=== PATIENT | male | born 1940 | race Caucasian/White ===

== ENCOUNTER → 2019-08-29 08:52 | Outpatient (BNVA) | payer MEDICARE, OTHER, SELFPAY | PROVIDERS: Family Provider Family Medicine; PCP Family Medicine; Referring Provider Family Medicine; Visit Provider Podiatrist Foot & Ankle Surgery | DX: M79.672 Pain in left foot (principal); M19.072 Primary osteoarthritis, left ankle and foot; M21.42 Flat foot [pes planus] (acquired), left foot | CPT/HCPCS: 73630 ==

== ENCOUNTER 2019-10-31 12:45 | Observation (INO) | payer MEDICARE, OTHER, SELFPAY ==
[2019-10-31] VITALS (8 sets, daily range): BP systolic 116–153; BP diastolic 71–92; PULSE 65–90; RESP 17–24; TEMP 36.4–36.9; O2SAT 93–100; BMI 28.0
--- NOTE | 2019-10-31 12:49 | CT_ITS ---
WS: [id number] CT ABDOMEN PELVIS TECHNIQUE: Contrast-enhanced CT of the abdomen and pelvis with coronal and sagittal reformatted image s. CLINICAL INFORMATION: abd pain COMPARISON: None. DLP: 1032.[address] scans at [facility] use at least one of these dose optimization techniques: automat ed exposure control; mA and/or kV adjustment per patient size (includes targeted exams where dose is matched to clinical indication); or iterative reconstruction. FINDINGS: Liver is normal in appearance. Normal gallbladder. Fluid distended stomach with air-fluid levels. Dil ated fluid-filled loops of proximal small bowel. Distal small bowel is decompressed. Colon is decompr essed. Fatty atrophy of the pancreas. Small left adrenal adenoma. Right Adrenal gland is normal. Normal sple en. Hazy groundglass infiltrates within the lingula and left lower lobe. Additional groundglass infil trates within the right middle lobe. Emphysematous changes in the lung bases. Normal caliber abdominal aorta. Fat-containing umbilical hernia. No herniated bowel. Small left nazia l cyst. Left renal cyst measures 3.1 cm. Notified Curly Ledbetter DO at 10/31/2019 2:[address]/CT abdomen pelvis w con* [id number] IMPRESSION: 1. Dilated fluid-filled stomach with air-fluid level. Fluid in the proximal sm all bowel with mild small bowel dilatation. No focal transition point. Findings can be seen with small bowel ileus or developing partial small bowel obstructi on. 2. Distal small bowel and colon are decompressed. 3. Heterogeneously enhancing enlarged prostate measuring 5.5 cm in maximum dim ension. Correlation PSA. 4. Hazy groundglass infiltrates within the lingula, right middle lobe, and lef t lower lobe can be seen with viral pneumonia including COVID pneumonia 5. Left renal cyst measuring 3.1 cm. 6. Small left adrenal lesion likely adenoma.
--- NOTE | 2019-10-31 12:49 | ECG_ITS ---
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 Measurements Intervals [place] Rate: 57 P: 66 [place]: 151 QRS: 56 QRSD: 98 T: 42 QT: 404 QTc: 395 Interpretive Statements SINUS BRADYCARDIA Compared to ECG 01/16/2019 23:57:55 Sinus rhythm no longer present T-wave abnormality no longer present Electronically Signed On 10-31-2019 17:45:00 CDT by Arcadio Giordano M.D. [id number]
--- NOTE | 2019-10-31 12:51 | W.ED.ABDPA2 ---
HPI - Abdominal Pain General: Chief Complaint: Nausea/Vomiting/Diarrhea Stated Complaint: WEAKNESS, N/V, DIAPHORESIS Time Seen by Provider: 10/31/19 12:48 History of Present Illness: HPI narrative: 79 yo male with syncopal episode at his doctors office, He had been having abdominal pain intermittently for the last several months. This morning he was at his doctor's office he was on the way to get some lab work done and had an episode of syncope. He bradycardia down into the 30s he was given some antiemetics brought here by EMS. Earlier today vomited times once a lot of bilious vomit has not had any diarrhea is not had any GI blood source denies any dysuria urgency or frequency has noticed a lot of increased belching. Denies chest pain or shortness of breath. He states has been kind of focusing on his gallbladder as an outpatient work-up up to this point. Is not noticed any trigger foods that seem to set it off and talking to him it does sound as if he has some reflux. He is taking omeprazole once daily. MD elicited complaint: abdominal pain Pertinent past history: none Onset (ago): week(s) (Approximately 6 weeks per the patient) Pain Consistency: intermittent Location: Periumbilical Severity: moderate Quality: cramping Radiation: none Migration to: no migration Exacerbating factors: eating and vomiting Relieving factors: nothing Associated Symptoms: Reports nausea and vomiting; Denies bloating, chills, coffee ground emesis, constipation, diarrhea, dysuria, fever(s), hematochezia, hematemesis and melena Review of Systems Const: Denies: fever(s), chills, body aches, change in appetite, fatigue or malaise ENMT: Denies: throat pain, ear or mastoid pain, nasal discharge or nasal congestion Card: Denies: chest pain, edema, dyspnea on exertion or orthopnea Resp: Denies: dyspnea, productive cough or non-productive cough GI: Reports: abdominal pain, nausea and vomiting; Denies: hematemesis, coffee ground emesis, diarrhea, constipation, bloating, hematochezia or melena : Denies: flank pain, dysuria, urinary frequency or urinary urgency Skin/Breast: Denies: rash or pruritus PFS ED PFSH: Medical History (Updated 11/02/19 @ 14:11 by Curly Ledbetter DO) GERD (gastroesophageal reflux disease) Hypercholesterolemia Hypertension Surgical History History of medial meniscus repair of right knee Status post Dupuytren's fasciectomy Family History Other Cancer Hyperlipidemia Hypertension Lung disease Stroke Denies family history of Diabetes CAD (coronary artery disease) Clotting disorder Dementia Psychiatric illness Chronic kidney disease (CKD) Suicide Anesthesia complication Bleeding disorder Family history of premature coronary artery disease Social History Smoking and tobacco status: never smoked Alcohol intake: current Alcohol intake frequency: holidays/special occasions only Physical Exam Const: COMMON NORMALS: no acute distress GENERAL APPEARANCE: cooperative and comfortable ORIENTATION/CONSCIOUSNESS: Yes awake, Yes oriented to person, Yes oriented to place and Yes oriented to time Eye: COMMON NORMALS: Equal, round and reactive pupils present, EOMs intact bilaterally, conjunctivae normal and no scleral icterus CONJUNCTIVA: Yes conjunctivae normal PUPIL: Yes Equal, round and reactive pupils present Neck/C-Spine: COMMON NORMALS: full ROM, no lymphadenopathy, supple and no JVD Lymph: LYMPHATIC: no lymphadenopathy noted and no lymphedema noted Resp: COMMON NORMALS: normal respiratory effort, No retractions, No use of accessory muscles and clear to auscultation bilaterally AUSCULTATION: clear to auscultation bilaterally Cardio: COMMON NORMALS: no JVD, regular rate, regular rhythm and No murmurs present (Cardio) RATE: regular rate RHYTHM: regular rhythm GI: COMMON NORMALS: Soft to palpation and No hepatosplenomegaly present AUSCULTATION: Yes normoactive bowel sounds PALPATION: Yes Soft to palpation, Yes Tenderness to palpation present (GI) (Vague diffuse tenderness with no acute abdominal findings seems to be slightly more focused to the supraumbilical he has negative Umana sign), No Guarding due to palpation present (GI), Yes No hepatosplenomegaly present and No Rebound tenderness present PERCUSSION: normal to percussion Extremity: COMMON NORMALS: normal to inspection, capillary refill normal, no clubbing, cyanosis or edema, no calf tenderness and no pedal edema Neuro: SENSORIUM/ORIENTATION: Yes oriented to person, Yes oriented to place and Yes oriented to time Skin: COMMON NORMALS: no rashes or lesions noted GENERAL SKIN EXAM: no rashes or lesions noted Course Vital Signs: Vital signs: Vital Signs Temperature 97.8 F 11/01/19 18:25 Pulse Rate 67 11/01/19 18:25 Respiratory Rate 16 11/01/19 18:25 Blood Pressure 122/72 11/01/19 18:25 Pulse Oximetry 96 11/01/19 18:25 MDM - Abdominal Pain Lab Data: Labs: Lab Results 10/31/19 10/31/19 10/31/19 Range/Units 13:00 13:00 13:00 WBC 8.2 (4.0-10.0) 10^3/ uL RBC 5.40 H (4.1-5.3) 10^6/u L Hgb 16.2 (11.7-16.6) g/dL Hct 50.4 (42.0-52.0) % MCV 93.3 (80-94) fL MCH 30.0 (28.0-34.0) pg MCHC 32.1 (30.0-36.0) g/dL RDW 12.6 (12.1-15.1) % Plt Count 233 (130-400) 10^3/c mm MPV 11.6 H (7.4-10.4) fL Neut % (Auto) 76.2 % Lymph % (Auto) 16.0 % [place] % (Auto) 5.4 % Eos % (Auto) 1.5 % Baso % (Auto) 0.5 % Neut # (Auto) 6.3 (1.8-7.7) 10^3/u L Lymph # (Auto) 1.3 (0.8-4.8) 10^3/u L [place] # (Auto) 0.4 (0.2-0.9) 10^3/u L Eos # (Auto) 0.1 (0.0-0.8) 10^3/u L Baso # (Auto) 0.0 (0.0-0.1) 10^3/u L Nucleated RBC % (a uto) 0 % Nucleated RBCs # 0.0 /100WBC Sodium 137 (136-145) mmol/L Potassium 5.4 H (3.5-5.1) mmol/L Chloride 98 (98-107) mmol/L Carbon Dioxide 25 (22-29) mmol/L Anion Gap 19.4 H (5-19) BUN 18 (8-23) mg/dL Creatinine 1.6 H (0.7-1.2) mg/dL Glucose 146 H (65-115) mg/dL Estimat Average Gl ucose Hemoglobin A1c (4.0-6.0) % Calculated Osmolal ity 283 L (285-295) mOsm/k g Lactate 1.4 (0.5-2.2) mmol/L Calcium 10.1 (8.5-10.5) mg/dL Total Bilirubin 0.5 (0.15-1.2) mg/dL AST 17 (0-40) U/L ALT 16 (0-41) U/L Alkaline Phosphata se 44 (40-130) IU/L Troponin T Baselin e (0-15) ng/L Troponin T 120 Min [place] (0-15) ng/L Delta Troponin T (0-10) ABS# Total Protein 7.6 (6.6-8.7) g/dL Albumin 4.4 (3.5-5.2) g/dL Globulin 3.2 (1.3-4.6) g/dL Lipase 56 (13-60) U/L TSH (0.27-4.20) uIU/ mL Urine Color (Yellow) Urine Appearance (CLEAR) Urine pH (5-7) Ur Specific Gravit y (1.005-1.030) Urine Protein (Negative) Urine Glucose (UA) (Normal) Urine Ketones (Negative) Urine Blood (Negative) Urine Nitrate (Negative) Urine Bilirubin (NEGATIVE) Prot Sulfosalicyli c Acd (Negative) Urine Urobilinogen (Negative) mg/dL Ur Leukocyte Sudha ase (Negative) Urine RBC (0-2) /hpf Urine WBC (0-5) /hpf Ur Squamous Epith Cells (0-5) Amorphous Sediment Urine Bacteria (NONE) Urine Mucus 10/31/19 10/31/19 10/31/19 Range/Units 13:00 13:00 13:00 WBC (4.0-10.0) 10^3/ uL RBC (4.1-5.3) 10^6/u L Hgb (11.7-16.6) g/dL Hct (42.0-52.0) % MCV (80-94) fL MCH (28.0-34.0) pg MCHC (30.0-36.0) g/dL RDW (12.1-15.1) % Plt Count (130-400) 10^3/c mm MPV (7.4-10.4) fL Neut % (Auto) % Lymph % (Auto) % [place] % (Auto) % Eos % (Auto) % Baso % (Auto) % Neut # (Auto) (1.8-7.7) 10^3/u L Lymph # (Auto) (0.8-4.8) 10^3/u L [place] # (Auto) (0.2-0.9) 10^3/u L Eos # (Auto) (0.0-0.8) 10^3/u L Baso # (Auto) (0.0-0.1) 10^3/u L Nucleated RBC % (a uto) % Nucleated RBCs # /100WBC Sodium (136-145) mmol/L Potassium (3.5-5.1) mmol/L Chloride (98-107) mmol/L Carbon Dioxide (22-29) mmol/L Anion Gap (5-19) BUN (8-23) mg/dL Creatinine (0.7-1.2) mg/dL Glucose (65-115) mg/dL Estimat Average Gl ucose 123 Hemoglobin A1c 5.9 (4.0-6.0) % Calculated Osmolal ity (285-295) mOsm/k g Lactate (0.5-2.2) mmol/L Calcium (8.5-10.5) mg/dL Total Bilirubin (0.15-1.2) mg/dL AST (0-40) U/L ALT (0-41) U/L Alkaline Phosphata se (40-130) IU/L Troponin T Baselin e 14 (0-15) ng/L Troponin T 120 Min [place] (0-15) ng/L Delta Troponin T (0-10) ABS# Total Protein (6.6-8.7) g/dL Albumin (3.5-5.2) g/dL Globulin (1.3-4.6) g/dL Lipase (13-60) U/L TSH 3.06 (0.27-4.20) uIU/ mL Urine Color (Yellow) Urine Appearance (CLEAR) Urine pH (5-7) Ur Specific Gravit y (1.005-1.030) Urine Protein (Negative) Urine Glucose (UA) (Normal) Urine Ketones (Negative) Urine Blood (Negative) Urine Nitrate (Negative) Urine Bilirubin (NEGATIVE) Prot Sulfosalicyli c Acd (Negative) Urine Urobilinogen (Negative) mg/dL Ur Leukocyte Sudha ase (Negative) Urine RBC (0-2) /hpf Urine WBC (0-5) /hpf Ur Squamous Epith Cells (0-5) Amorphous Sediment Urine Bacteria (NONE) Urine Mucus 10/31/19 10/31/19 Range/Units 15:01 15:13 WBC (4.0-10.0) 10^3/ uL RBC (4.1-5.3) 10^6/u L Hgb (11.7-16.6) g/dL Hct (42.0-52.0) % MCV (80-94) fL MCH (28.0-34.0) pg MCHC (30.0-36.0) g/dL RDW (12.1-15.1) % Plt Count (130-400) 10^3/c mm MPV (7.4-10.4) fL Neut % (Auto) % Lymph % (Auto) % [place] % (Auto) % Eos % (Auto) % Baso % (Auto) % Neut # (Auto) (1.8-7.7) 10^3/u L Lymph # (Auto) (0.8-4.8) 10^3/u L [place] # (Auto) (0.2-0.9) 10^3/u L Eos # (Auto) (0.0-0.8) 10^3/u L Baso # (Auto) (0.0-0.1) 10^3/u L Nucleated RBC % (a uto) % Nucleated RBCs # /100WBC Sodium (136-145) mmol/L Potassium (3.5-5.1) mmol/L Chloride (98-107) mmol/L Carbon Dioxide (22-29) mmol/L Anion Gap (5-19) BUN (8-23) mg/dL Creatinine (0.7-1.2) mg/dL Glucose (65-115) mg/dL Estimat Average Gl ucose Hemoglobin A1c (4.0-6.0) % Calculated Osmolal ity (285-295) mOsm/k g Lactate (0.5-2.2) mmol/L Calcium (8.5-10.5) mg/dL Total Bilirubin (0.15-1.2) mg/dL AST (0-40) U/L ALT (0-41) U/L Alkaline Phosphata se (40-130) IU/L Troponin T Baselin e (0-15) ng/L Troponin T 120 Min [place] 12.45 (0-15) ng/L Delta Troponin T -1.55 L (0-10) ABS# Total Protein (6.6-8.7) g/dL Albumin (3.5-5.2) g/dL Globulin (1.3-4.6) g/dL Lipase (13-60) U/L TSH (0.27-4.20) uIU/ mL Urine Color Straw (Yellow) Urine Appearance Clear (CLEAR) Urine pH 8.0 H (5-7) Ur Specific Gravit y 1.005 (1.005-1.030) Urine Protein Trace (Negative) Urine Glucose (UA) Norm (Normal) Urine Ketones 1+ H (Negative) Urine Blood Neg (Negative) Urine Nitrate Negative (Negative) Urine Bilirubin Neg (NEGATIVE) Prot Sulfosalicyli c Acd Negative (Negative) Urine Urobilinogen Norm (Negative) mg/dL Ur Leukocyte Sudha ase Negative (Negative) Urine RBC Rare (0-2) /hpf Urine WBC None (0-5) /hpf Ur Squamous Epith Cells 0-4 H (0-5) Amorphous Sediment Not Reportable Urine Bacteria Trace (NONE) Urine Mucus Trace Discharge Plan Discharge Patient Disposition: Placed in Observation Admit Provider: Jd Adair Clinical Impression: Syncope, Gastric distention, Acute kidney injury, GERD (gastroesophageal reflux disease) Condition: Stable Interventions: ED Discharge Assessment Last Done: 10/31/19 17:54 ED Charges Last Done: 10/31/19 17:54 Discharge Date/Time: 10/31/19 18:26 Coding Level of Care Code ED Global Climate Change Researcher for Chg Fwd Exam Comprehensive
[2019-10-31 13:16] LABS: Basophils % 0.5 %; Eosinophils # 0.1 10^3/uL (0.0-0.8); Eosinophils % 1.5 %; Hematocrit 50.4 % (42.0-52.0); Hemoglobin 16.2 g/dL (11.7-16.6); Lymphocytes # 1.3 10^3/uL (0.8-4.8); Mean Corpuscular HGB Conc 32.1 g/dL (30.0-36.0); Mean Corpuscular Volume 93.3 fL (80-94); Mean Platelet Volume 11.6 fL (7.4-10.4); Monocytes # 0.4 10^3/uL (0.2-0.9); Monocytes % 5.4 %; Neutrophils # 6.3 10^3/uL (1.8-7.7); Neutrophils % 76.2 %; Nucleated Red Blood Cells % 0 %; Platelet Count 233 10^3/cmm (130-400); Red Cell Distribution Width 12.6 % (12.1-15.1); White Blood Count 8.2 10^3/uL (4.0-10.0)
[2019-10-31 13:35] LABS: Alanine Aminotransferase 16 U/L (0-41); Albumin Level 4.4 g/dL (3.5-5.2); Alkaline Phosphatase 44 IU/L (40-130); Anion Gap 19.4 (5-19); Aspartate Amino Transferase 17 U/L (0-40); Blood Urea Nitrogen 18 mg/dL (8-23); Calcium 10.1 mg/dL (8.5-10.5); Carbon Dioxide 25 mmol/L (22-29); Chloride 98 mmol/L (98-107); Globulin 3.2 g/dL (1.3-4.6); Glucose 146 mg/dL (65-115); Lipase 56 U/L (13-60); Osmolality Calculated 283 mOsm/kg (285-295); Potassium 5.4 mmol/L (3.5-5.1); Sodium 137 mmol/L (136-145); Total Bilirubin 0.5 mg/dL (0.15-1.2); Total Protein 7.6 g/dL (6.6-8.7); Troponin(5th) Baseline 14 ng/L (0-15)
[2019-10-31 13:38] LABS: Lactate (Lactic Acid level) 1.4 mmol/L (0.5-2.2)
[2019-10-31] MEDS: diphenhydrAMINE 50 mg/mL SDV 1mL IVP (13:46)
[2019-10-31] MEDS: hydrocortisone 100 mg/2 mL SDV IVP (13:46)
[2019-10-31] MEDS: ondansetron 2 mg/ML SDV 2 mL 4 MG IVP (13:46)
[2019-10-31] MEDS: sodium chloride 0.9% 1,000 ML 999 ML IV (13:46)
[2019-10-31] MEDS: iodixanol 320 mg/mL 100mL Btl IV (14:11)
--- NOTE | 2019-10-31 14:14 | PC.NURSE ---
pt back from CT by stretcher with tech
--- NOTE | 2019-10-31 14:35 | XRR_ITS ---
PROCEDURE INFORMATION: Exam: XR Chest, 1 View Exam date and time: 10/31/2019 2:59 PM Age: 79 years old Clinical indication: Cough and dyspnea; Patient HX: Syncope this a. M. Dyspnea/cough. C/O abd pain TECHNIQUE: Imaging protocol: XR of the chest Views: 1 view. COMPARISON: CR Chest 1 [place] [id number] 01/16/2019 7:13 PM FINDINGS: Lungs: Patchy opacification at the left lung base. Pleural space: Unremarkable. No pleural effusion. No pneumothorax. Heart/Mediastinum: Unremarkable. No cardiomegaly. Bones/joints: Degenerative changes of the spine. XR/XR chest 1V portable [id number] IMPRESSION: Patchy opacification at the left lung base representing atelectasis/infiltrates. Follow-up is suggested.
--- NOTE | 2019-10-31 14:49 | ECG_ITS ---
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 Measurements Intervals [place] Rate: 72 P: 61 [place]: 172 QRS: 28 QRSD: 96 T: 15 QT: 365 QTc: 402 Interpretive Statements SINUS RHYTHM NONSPECIFIC T-WAVE ABNORMALITY Compared to ECG 10/31/2019 13:02:55 T-wave abnormality now present Sinus bradycardia no longer present Electronically Signed On 10-31-2019 17:47:19 CDT by Arcadio Giordano M.D. [email or web address] county [email or web address]/store/[id number]
[2019-10-31 15:35] LABS: Add Urine Culture? No; Add Urine Microscopic? YES; Bacteria Urine TRACE; Bilirubin Urine Neg (NEGATIVE); Blood Urine Neg (Negative); Glucose Urine UA Norm (Normal); Ketones Urine 1+ (Negative); Leukocyte Esterase Urine Negative (Negative); Mucus Urine TRACE; Nitrate Urine Negative (Negative); Protein Urine Trace (Negative); RBC Urine RARE /hpf (0-2); Specific Gravity, Urine 1.005 (1.005-1.030); Squamous Epithelial Cell Urine 0-4 (0-5); Sulfosalicylic Acid Urine Negative (Negative); Urine Appearance Clear (CLEAR); Urine Color Straw (Yellow); Urobilinogen Urine Norm (Negative)
[2019-10-31 15:44] LABS: Troponin 5 2HR 12.45 ng/L (0-15)
[2019-10-31 15:47] LABS: Troponin 5 2HR Delta -1.55 ABS# (0-10)
--- NOTE | 2019-10-31 16:40 | P.HP_ITS ---
Providers/Chief Complaint Primary Care Provider: Abe Fairbanks MD Chief Complaint: WEAKNESS, N/V, DIAPHORESIS History of Present Illness Dick Wiseman is a 79 year old male with HLD, HTN, GERD had an episode of syncope today while getting some labs drawn at the hospital with his heart rate at the time noted decreasing as low as 39 bpm. Recently he has been dealing with abdominal discomfort, distention, belching, poor appetite. He reports things got much worse today with vomiting. After taking some stool softeneres he also got some loose stools, but denies recurrent diarrhea. Noted JAKOB, Cr 1.6, mild hyperkalemia 5.4. Elevated anion gap, but lactate only 1.4. Blood glucose 144. Per discussion with his PCP he has been having digestive issues for a while, somewhat worse recently. He otherwise normally takes good care of himself. He has had prediabetes in the past which has been lifestyle controlled. His potassium normally runs around 5.3. He has had endoscopic evaluation of upper GI tract previously, although it has been around 7 years since then. Patient himself reports history of Oates's esophagus. In addition to above stomach findings, CT abdomen pelvis was also with incidental finding of groundglass o pacities in bilateral lower lungs. Review of Systems Const: Reports: other (Syncopal episode); Denies: fever(s), chills, body aches or malaise Eyes: Denies: change in vision or eye redness ENMT: Denies: throat pain, oral sores or ear or mastoid pain Card: Reports: other (Bradycardia noted down to 39 bpm during presyncopal/syncopal episode); Denies: chest pain, edema, pre-syncope or dyspnea on exertion Resp: Denies: dyspnea, productive cough, change in phlegm color or hemoptysis GI: Reports: nausea, vomiting, bloating and belching; Denies: abdominal pain, diarrhea, constipation, hematochezia or melena : Denies: flank pain, difficulty urinating, urinary frequency or hematuria Musc: Denies: back pain, joint swelling or joint redness Skin/Breast: Denies: rash, sores or new lesions Neuro: Denies: headache(s), numbness in extremities, weakness in extremities, dizziness, confusion or seizure-like activity Endo: Denies: polyuria or polydipsia Andrea/Lymph: Denies: easy bleeding or purpura All/Imm: Denies: urticaria, throat swelling or tongue swelling Medications/Allergies Home Medications Medication Instructions Recorded Confirmed Last Taken Type amlodipine 10 mg tablet 10 mg PO DAILY 08/29/19 10/31/19 10/31/19 History aspirin 81 mg tablet,delayed 81 mg PO DAILY 08/29/19 10/31/19 10/30/19 History release diclofenac sodium 1 % topical gel 2 gm TOPICAL BID #100 gm 08/29/19 10/31/19 10/30/19 Rx docosahexaenoic acid (dha)-epa 120 1 cap PO DAILY 08/29/19 10/31/19 10/30/19 History mg-180 mg capsule fluticasone propionate 50 1 spray INTRANASAL DAILY 08/29/19 10/31/19 10/30/19 History mcg/actuation nasal spray,suspension lactobacillus combination no.4 3 3,000 mmu cells PO DAILY 08/29/19 10/31/19 10/30/19 History billion cell capsule levothyroxine 50 mcg capsule 50 mcg PO DAILY 08/29/19 10/31/19 10/31/19 History losartan 100 mg tablet 50 mg PO DAILY 08/29/19 10/31/19 10/31/19 History omeprazole 20 mg capsule,delayed 20 mg PO DAILY 08/29/19 10/31/19 10/31/19 History release psyllium husk 0.4 gram capsule 0.4 gm PO DAILY 08/29/19 10/31/19 10/30/19 History saw palmetto 160 mg capsule 160 mg PO BID 08/29/19 10/31/19 10/30/19 History selenium 200 mcg capsule 200 mcg PO DAILY 08/29/19 10/31/19 Unknown History simvastatin 10 mg tablet 10 mg PO DAILY 08/29/19 10/31/19 10/30/19 History valsartan 320 mg PO DAILY 10/31/19 10/31/19 10/31/19 History Allergies Allergy/AdvReac Type Severity Reaction Status Date / Time iodine Allergy ALGY-Anaphy Verified 10/31/19 12:58 laxis latex Allergy ALGY-Rash Verified 10/31/19 12:58 PFSH Acute PFSH: Medical History Hypercholesterolemia Hypertension Surgical History History of medial meniscus repair of right knee Status post Dupuytren's fasciectomy Family History Other Cancer Hyperlipidemia Hypertension Lung disease Stroke Denies family history of Diabetes CAD (coronary artery disease) Clotting disorder Dementia Psychiatric illness Chronic kidney disease (CKD) Suicide Anesthesia complication Bleeding disorder Family history of premature coronary artery disease Social History Smoking and tobacco status: never smoked Alcohol intake: current Alcohol intake frequency: holidays/special occasions only Vitals/I&O/Wt Last Vital Signs Temp 97.6 F 10/31/19 12:52 Pulse 71 10/31/19 15:52 Resp 24 H 10/31/19 13:53 BP 144/77 10/31/19 15:52 Pulse Ox 100 10/31/19 13:53 Weight last 48 hrs Weight 91.172 kg Physical Exam Const: COMMON NORMALS: no acute distress and patient oriented x3 ORIENTATION/CONSCIOUSNESS: Yes Other orientation findings (Currently awake, alert, comfortable, pleasant. Notes some abdominal bloating. Denies pain) OTHER: at bedside HENMT: COMMON NORMALS: oropharynx normal Neck/C-Spine: COMMON NORMALS: no JVD Resp: COMMON NORMALS: normal respiratory effort and clear to auscultation bilaterally AUSCULTATION: clear to auscultation bilaterally Cardio: COMMON NORMALS: no JVD, regular rhythm, S1 normal heart sound present, S2 normal heart sound present and No murmurs present (Cardio) RHYTHM: regular rhythm HEART SOUNDS: S1 normal heart sound present and S2 normal heart sound present GI: COMMON NORMALS: Normal to inspection, nondistended, normoactive bowel sounds present, Soft to palpation and non-tender PALPATION: Yes Soft to palpation Extremity: COMMON NORMALS: no joint enlargement and no pedal edema Neuro: COMMON NORMALS: patient oriented x3 and moves all extremities Skin: COMMON NORMALS: no rashes or lesions noted GENERAL SKIN EXAM: no rashes or lesions noted Data : 10/31/19 13:00 10/31/19 13:00 Micro: Microbiology 10/31/19 13:00 Blood Culture - Preliminary Blood SPECIMEN COLLECTED 10/31/19 12:55 Blood Culture - Preliminary Blood SPECIMEN COLLECTED A&P Assessment and plan (1) Syncope: Syncopal episode this morning around 1130 while being assessed by his PCP and having some labs drawn. Currently he is awake alert, feeling better. Does complain of some normal distention. Had episode of vomiting today. Recently has been bothered more by his abdominal symptoms with indigestion, bloating, belching. Noted to be bradycardic down to 39 bpm during the episode of decreased responsiveness. Does not have any chest pain. Troponin so far has been unremarkable. EKG without signs of acute ischemia. He is being placed in observation. Will monitor on telemetry. Assess TSH. He does have some mild hyperkalemia with potassium of 5.4. Reportedly it usually runs around 5.3. At this time will hold valsartan. May benefit from low potassium diet long-term. From discharge consider event monitoring. Discussed with his PCP, and he will be following up with additional evaluation in office. Status: Acute (2) Bradycardia: Reportedly down to 39 bpm. He does report some episodes of bradycardia in the past, and has not had associated symptoms with it. Assessment and management as above. Not on any reyna blocking medication Status: Acute (3) Acute kidney injury: Creatinine up to 1.6. Suspect this may be a combination secondary to some hypovolemia with vomiting, but also in combination with medications valsartan and possibly floor degree diclofenac gel. Will both of these at this time. He received fluid challenge in ER with 1 L normal saline. Will monitor renal function. Status: Acute (4) Gastric distention: Has been having dyspepsia symptoms, with nausea, poor appetite, early satiety, belching, and this morning vomiting. Symptoms have been going on for at least 6 weeks, but does not normally vomit. Significant gastric distention noted on CT abdomen pelvis, although without transition point to signify gastric outlet obstruction. He has history of prediabetes, although this reportedly has been controlled with lifestyle per discussion with his PCP. Will assess A1c. He may benefit from gastric emptying study on outpatient side, as well as reevaluation by endoscopy given last endoscopy was at least 7 years ago. For now maintain n.p.o., symptomatic management of nausea. In the morning will try to see if he tolerates some liquids. This and above assessment and plan discussed with him and his , and both are agreeable. All questions answered. Status: Acute (5) GERD (gastroesophageal reflux disease): Continue omeprazole. Reports past history of Oates's esophagus noted on EGD. Status: Acute (6) Hyperkalemia: Mild hyperkalemia potassium 5.4. Hold valsartan. For now n.p.o., may benefit from low potassium diet long-term. Reassess potassium, renal function. Status: Acute (7) Pulmonary infiltrates: Incidentally noted hazy groundglass opacities on CT in bilateral lower lobes. He will be assessed for COVID 19. Status: Acute Additional A&P Information Soft stool: Diarrhea earlier reported, but he denies having specifically diarrhea. Says that he has had some soft stool after a laxative. Attestations Medical Necessity Statement*: Place in observation. Coding Level of Care Code Acute Regional Education Manager for [facility] Cambridged Diagnoses Syncope R55 Bradycardia R00.1 Acute kidney injury N17.9 Gastric distention K31.89 GERD (gastroesophageal reflux disease) K21.9 Hyperkalemia E87.5 Pulmonary infiltrates R91.8
[2019-10-31] MEDS: metoclopramide 5 mg/mL SDV 2 mL 10 MG IVP (16:52)
--- NOTE | 2019-10-31 17:03 | PC.NURSE ---
pt tested for COVID 19 saucedo virus. Pt placed on droplet precautions
[2019-10-31 17:54] LABS: Estmated Average Glucose 123; Hemoglobin A1C 5.9 % (4.0-6.0)
[2019-10-31 17:55] LABS: Thyroid Stimulating Hormone 3.06 uIU/mL (0.27-4.20)
[2019-10-31 19:52] LABS: Troponin 5 6HR 10.18 ng/L (0-15)
[2019-10-31 20:19] LABS: Troponin 5 6HR Delta -3.82 ng/L (0-12)
[2019-10-31] MEDS: sodium chloride 0.9% 1,000 ML 100 ML IV (21:11)
[2019-10-31] MEDS: heparin 5,000 unit/mL INJ 1 mL 5000 UNIT SUBCUT (21:11)
[2019-11-01] VITALS: BP 132/75; PULSE 92; RESP 20; TEMP 37.5; O2SAT 90
[2019-11-01] MEDS: heparin 5,000 unit/mL INJ 1 mL 5000 UNIT SUBCUT (03:39)
[2019-11-01 04:00] VITALS: BP 114/69; PULSE 88; RESP 19; TEMP 37; O2SAT 92
[2019-11-01 05:58] LABS: Basophils % 0.3 %; Eosinophils % 0.4 %; Hematocrit 43.8 % (42.0-52.0); Lymphocytes # 1.3 10^3/uL (0.8-4.8); Lymphocytes % 13.5 %; Mean Corpuscular Hemoglobin 30.2 pg (28.0-34.0); Mean Corpuscular Volume 94.4 fL (80-94); Monocytes # 0.7 10^3/uL (0.2-0.9); Monocytes % 7.7 %; Neutrophils # 7.4 10^3/uL (1.8-7.7); Neutrophils % 77.9 %; Nucleated Red Blood Cells % 0 %; Platelet Count 187 10^3/cmm (130-400); Red Blood Count 4.64 10^6/uL (4.1-5.3); Red Cell Distribution Width 12.9 % (12.1-15.1); White Blood Count 9.5 10^3/uL (4.0-10.0)
[2019-11-01] MEDS: sodium chloride 0.9% 1,000 ML 100 ML IV (06:30)
[2019-11-01 06:35] LABS: Alanine Aminotransferase 12 U/L (0-41); Albumin Level 3.4 g/dL (3.5-5.2); Alkaline Phosphatase 33 IU/L (40-130); Anion Gap 14.3 (5-19); Aspartate Amino Transferase 14 U/L (0-40); Blood Urea Nitrogen 23 mg/dL (8-23); Calcium 8.3 mg/dL (8.5-10.5); Carbon Dioxide 22 mmol/L (22-29); Chloride 108 mmol/L (98-107); Globulin 2.8 g/dL (1.3-4.6); Glucose 102 mg/dL (65-115); Osmolality Calculated 287 mOsm/kg (285-295); Potassium 4.3 mmol/L (3.5-5.1); Sodium 140 mmol/L (136-145); Total Bilirubin 0.6 mg/dL (0.15-1.2); Total Protein 6.2 g/dL (6.6-8.7)
[2019-11-01 08:00] VITALS: BP 104/56; PULSE 73; RESP 16; TEMP 37.2; O2SAT 92
[2019-11-01] MEDS: pantoprazole DR 40 mg Tablet PO (09:01)
[2019-11-01] MEDS: amlodipine 10 mg Tablet PO (09:01)
[2019-11-01] MEDS: levothyroxine 50 mcg Tablet PO (09:01)
[2019-11-01] MEDS: fluticasone nasal spray 16gm Btl 1 SPRAY INTRANASAL (09:05)
[2019-11-01 11:44] VITALS: BP 152/70; PULSE 82; RESP 16; TEMP 37.2; O2SAT 90
[2019-11-01 16:00] VITALS: BP 122/72; PULSE 67; RESP 16; TEMP 36.6; O2SAT 96
--- NOTE | 2019-11-01 17:00 | P.DS_ITS ---
Discharge Providers Date of Admission: 10/31/19 16:17 Date of Discharge: November 01, 2019 Attending Provider at Admission: Jd Adair Attending Provider at Discharge: Jd Adair Primary Care Provider: Abe Fairbanks MD Diagnoses at Discharge Discharge Diagnosis (1) Syncope: Status: Acute (2) Bradycardia: Status: Acute (3) Acute kidney injury: Status: Acute (4) Gastric distention: Status: Acute (5) GERD (gastroesophageal reflux disease): Status: Acute (6) Hyperkalemia: Status: Acute (7) Pulmonary infiltrates: Status: Acute Reason for Visit Reason for Visit: WEAKNESS, N/V, DIAPHORESIS Hospital Course Hospital Course: Pleasant 79-year-old gentleman was observed in the hospital after an episode of syncope, with noted bradycardia down as low as 38 bpm reportedly, recently also with episodes of dyspepsia, early satiety, and earlier in the morning with episode of vomiting. On presentation he was noted to have significant gastric distention, without transition point to signify a point of obstruction. Given his symptoms concern is for gastroparesis, although his prediabetes appears has been controlled well with lifestyle. His A1c is 5.9. He has had an upper endoscopy done, however, this is been at least 7 years ago. Gastric distention will require additional evaluation, and he is referred for gastric emptying study, but also will require endoscopic relation discussed with him to exclude possible dangerous causes including malignancy or other which may cause gastric outlet obstruction. This is not clearly seen at this time, and for now gastroparesis is more suspicious, however, he needs additional evaluation, and he understands this. Overnight he has had no syncopal events, he is feeling great, and he is tolerating clear liquid diet in small amounts, without any further vomiting. Syncopal event is suspected to be a combination secondary to vasovagal syncope, as well as some dehydration with vomiting earlier during the day, as well as poor appetite due to dyspepsia symptoms over the last several weeks. Contribution of bradycardia is unclear, as he reports prior history of bradycardia, and in fact back in December actually wore a mon itor with findings of bradycardia down into low 40s, high 30s, although her reports remained asymptomatic. Here on telemetry he is noted to go down as low as 39 bpm, and as noted has had no recurrence of syncopal episodes. This is been discussed with him. Appears back in December he has not had an echocardiogram done, so as per discussion with him to rule out additional structural heart disease we will refer him for echocardiography to which she is agreeable to do on outpatient basis, and is also referred to cardiology and encouraged to discuss what is the utility of additional 21-day event monitoring or possibly longer monitoring with a loop recorder to exclude episodes of bradycardia even lower than what we are seeing. He remains chest pain-free, and has had no signs of cardiac ischemia. His TSH is normal. His potassium was mildly elevated on presentation at 5.4. Low potassium diet is recommended, valsartan is discontinued due to this, as well as due to acute kidney injury wi th creatinine of 1.6, previously normal. Diclofenac gel is discontinued at this time as well. He is instructed to avoid nephrotoxins. Please follow-up renal function and potassium levels. Due to incidentally noted groundglass opacities on CT scan he was assessed for COVID-19 and was found negative. He has no trouble breathing, no cough, shortness of breath, fever, or other symptoms suggestive of pneumonia. There may be very mild pneumonitis due to episode of vomiting, however, he understands to seek medical attention immediately in case there is any occurrence of fever, shortness of breath, or other concerning symptoms. He reports he is feeling great, and request to be discharged. States that all questions have been answered to his satisfaction. Physical Exam Const: COMMON NORMALS: no acute distress and patient oriented x3 ORIENTATION/CONSCIOUSNESS: Yes Other orientation findings (Currently awake, alert, comfortable, pleasant. Notes some abdominal bloating. Denies pain) OTHER: at bedside HENMT: COMMON NORMALS: oropharynx normal Neck/C-Spine: COMMON NORMALS: no JVD Resp: COMMON NORMALS: normal respiratory effort and clear to auscultation bilaterally AUSCULTATION: clear to auscultation bilaterally Cardio: COMMON NORMALS: no JVD, regular rhythm, S1 normal heart sound present, S2 normal heart sound present and No murmurs present (Cardio) RHYTHM: regular rhythm HEART SOUNDS: S1 normal heart sound present and S2 normal heart sound present GI: COMMON NORMALS: Normal to inspection, nondistended, normoactive bowel sounds present, Soft to palpation and non-tender PALPATION: Yes Soft to palpation Extremity: COMMON NORMALS: no joint enlargement and no pedal edema Neuro: COMMON NORMALS: patient oriented x3 and moves all extremities Skin: COMMON NORMALS: no rashes or lesions noted GENERAL SKIN EXAM: no rashes or lesions noted Discharge Data Data Completed and Pending: Completed Studies During Hospitalization Category Date Time Status CT abdomen pelvis w con* [id number] Stat Cat Scan 10/31/19 12:49 Completed XR chest 1V mg ble [id number] Stat Exams 10/31/19 14:35 Completed Pending at discharge Category Date Time Status Blood Culture Sta t Lab 10/31/19 13:00 Results Coronavirus Lab T est PTC Routine Lab 10/31/19 16:55 Received Labs from last 24 hours 11/01/19 11/01/19 10/31/19 04:57 04:57 19:08 WBC 9.5 RBC 4.64 Hgb 14.0 Hct 43.8 MCV 94.4 H MCH 30.2 MCHC 32.0 RDW 12.9 Plt Count 187 MPV 12.0 H Neut % (Auto) 77.9 Lymph % (Auto) 13.5 [place] % (Auto) 7.7 Eos % (Auto) 0.4 Baso % (Auto) 0.3 Neut # (Auto) 7.4 Lymph # (Auto) 1.3 [place] # (Auto) 0.7 Eos # (Auto) 0.0 Baso # (Auto) 0.0 Nucleated RBC % (a uto) 0 Nucleated RBCs # 0.0 Sodium 140 Potassium 4.3 Chloride 108 H Carbon Dioxide 22 Anion Gap 14.3 BUN 23 Creatinine 1.5 H Glucose 102 Estimat Average Gl ucose Hemoglobin A1c Calculated Osmolal ity 287 Calcium 8.3 L Total Bilirubin 0.6 AST 14 ALT 12 Alkaline Phosphata se 33 L Troponin I 6 Hour 10.18 Troponin I Hi Sens Del -3.82 L Total Protein 6.2 L Albumin 3.4 L Globulin 2.8 TSH 10/31/19 10/31/19 13:00 13:00 WBC RBC Hgb Hct MCV MCH MCHC RDW Plt Count MPV Neut % (Auto) Lymph % (Auto) Put[place] % (Auto) Eos % (Auto) Baso % (Auto) Neut # (Auto) Lymph # (Auto) [place] # (Auto) Eos # (Auto) Baso # (Auto) Nucleated RBC % (a uto) Nucleated RBCs # Sodium Potassium Chloride Carbon Dioxide Anion Gap BUN Creatinine Glucose Estimat Average Gl ucose 123 Hemoglobin A1c 5.9 Calculated Osmolal ity Calcium Total Bilirubin AST ALT Alkaline Phosphata se Troponin I 6 Hour Troponin I Hi Sens Del Total Protein Albumin Globulin TSH 3.06 Vitals: Last Vital Signs Temp 97.8 F 11/01/19 16:00 Pulse 67 11/01/19 16:00 Resp 16 11/01/19 16:00 BP 122/72 11/01/19 16:00 Pulse Ox 96 11/01/19 16:00 Discharge Plan Discharge Patient Disposition: Home, Self-Care Condition: Stable Prescriptions: Continued omeprazole 20 mg capsule,delayed release(DR/EC) 20 mg PO DAILY RF: 0 amlodipine 10 mg tablet 10 mg PO DAILY RF: 0 simvastatin 10 mg tablet 10 mg PO DAILY RF: 0 levothyroxine 50 mcg capsule 50 mcg PO DAILY RF: 0 aspirin 81 mg tablet,delayed release (DR/EC) 81 mg PO DAILY RF: 0 Fish Oil 120-180 mg capsule 1 cap PO DAILY RF: 0 saw palmetto 160 mg capsule 160 mg PO BID RF: 0 Probiotic 3 billion cell capsule 3,000 mmu cells PO DAILY RF: 0 selenium 200 mcg capsule 200 mcg PO DAILY RF: 0 psyllium husk [Metamucil] 0.4 gram capsule 0.4 gm PO DAILY RF: 0 fluticasone propionate 50 mcg/actuation spray,suspension 1 spray INTRANASAL DAILY RF: 0 Discontinued losartan 100 mg tablet 50 mg PO DAILY RF: 0 diclofenac sodium [Voltaren] 1 % gel 2 gm TOPICAL BID Qty: 100 RF: 0 valsartan 320 mg Tablet 320 mg PO DAILY RF: 0 Discharge Orders: Discharge Order (Routine); Ordered 11/01/19 Ordered By: Jd Adair Other Ambulatory Orders: Basic Metabolic Panel (Routine) Timeframe: 3 Days Facility: [facility] - Location: Lab - Main Lab Ordered By: Jd Adair CV echo complete* [id number] (Routine) Timeframe: 1 Week Facility: [facility] - Location: Radiology Ordered By: Jd Adair [place] [id number] (Routine) Timeframe: 3 Days Facility: [facility] - Location: Radiology Ordered By: Jd Adair Referrals: CARDIOLOGY [Provider Group] - 1 week (Syncope. Episodic bradycardia. ) Abe Fairbanks MD [Primary Care Provider] - 4-7 days (Gastric distention, dyspepsia, syncope, episodic bradycardia) Discharge Diet: Advance as tolerated Discharge Activity: Increase activity as tolerated Activity Restrictions/Additional Instructions: Low potassium dietdue to elevated potassium level on presentation. Avoid foods rich in potassium like oranges, bananas, tomatoes, potatoes, etc. Avoid any NSAIDs like ibuprofen, Aleve, or others as these may lead to kidney injury. Your valsartan at this time is discontinued until can be safely resumed if needed after renal function is back to normal. You are referred for echocardiogram. Please discuss utility of repeating event recorder, or possibly implantable loop recorder with the breaker tender and your primary care doctor given episodes of recurrent bradycardia. Advance diet slowly from liquids, with smaller meals spaced out throughout the day. If you experience fainting, any chest pain, heartbeat abnormalities, recurrence of vomiting, inability to tolerate food or drink even in small amounts, please seek medical attention without delay. Discharge Attestations Time Spent in Discharge Care*: greater than 30 min Quality Metrics Clinical Quality Measures During this hospital stay, did patient experience: None Coding Level of Care Code Acute [employer] Maker for [employer] Diagnoses Syncope R55 Bradycardia R00.1 Acute kidney injury N17.9 Gastric distention K31.89 GERD (gastroesophageal reflux disease) K21.9 Hyperkalemia E87.5 Pulmonary infiltrates R91.8
[2019-11-01 18:25] VITALS: BP 122/72; PULSE 67; RESP 16; TEMP 36.6; O2SAT 96
[2019-11-02 07:26] LABS: Coronavirus Lab Test PTC NOT DETECTED
== END 2019-11-01 18:20 | disposition home or self-care (01) ==
LOC: ER 13:36 → MEDSURG 17:22
PROVIDERS: Family Medicine; Admitting Provider Internal Medicine; Family Provider Family Medicine; PCP Family Medicine; Visit Provider Internal Medicine
DX: R55 Syncope and collapse (principal); R00.1 Bradycardia, unspecified; N17.9 Acute kidney failure, unspecified; K31.89 Other diseases of stomach and duodenum; K21.9 Gastro-esophageal reflux disease without esophagitis; E87.5 Hyperkalemia; R91.8 Other nonspecific abnormal finding of lung field; R19.7 Diarrhea, unspecified; Z79.82 Long term (current) use of aspirin; E78.00 Pure hypercholesterolemia, unspecified; I10 Essential (primary) hypertension; Z82.49 Family history of ischemic heart disease and other diseases of the circulatory system
CPT/HCPCS: 12345; 36415; 71045; 74177; 80053; 81001; 83036; 83605; 83690; 84443; 84484; 85025; 87040; 87635; 93005; 96361; 96372; 96374; 96375; 99284; 99285; G0378; J1200; J1644; J1720; J2405; J2765; J7030; Q9967

== ENCOUNTER 2020-07-27 22:13 | Emergency (ER) | payer MEDICARE, OTHER, SELFPAY ==
[2020-07-27 22:23] VITALS: BP 133/87; PULSE 115; RESP 18; TEMP 36.9; O2SAT 95; BMI 28.1
--- NOTE | 2020-07-27 22:33 | CTR_ITS ---
PROCEDURE INFORMATION: Exam: CT Abdomen And Pelvis Without Contrast Exam date and time: 07/27/2020 11:04 PM Age: 79 years old Clinical indication: Nausea and vomiting; Patient HX: C/O n/v/d; Additional info: Abd pain vomiting TECHNIQUE: Imaging protocol: Computed tomography of the abdomen and pelvis without contrast. Radiation optimization: All CT scans at this facility use at least one of these dose optimization techniques: automated exposure control; mA and/or kV adjustment per patient size (includes targeted exams where dose is matched to clinical indication); or iterative reconstruction. COMPARISON: No relevant prior studies available. RADIATION DOSE METRICS: Total DLP (mGy-cm): FINDINGS: Lungs: There is bibasilar atelectasis. Heart: Mild cardiomegaly. Liver: Normal. No mass. Gallbladder and bile ducts: No wall thickening, pericholecystic fluid or stones. Pancreas: Normal. No ductal dilation. Spleen: Normal. No splenomegaly. Adrenal glands: Normal. No mass. Kidneys and ureters: 3.1 cm left renal cyst. Stomach and bowel: Diverticulosis without diverticulitis. Appendix: No evidence of appendicitis. Intraperitoneal space: Unremarkable. No free air. No significant fluid collection. Vasculature: Unremarkable. No abdominal aortic aneurysm. Lymph nodes: Unremarkable. No enlarged lymph nodes. Urinary bladder: Unremarkable as visualized. Reproductive: Unremarkable as visualized. Bones/joints: Unremarkable. No acute fracture. Soft tissues: Fat containing umbilical hernia. CT/CT abdomen pelvis wo con [id number] IMPRESSION: 1. Fat containing umbilical hernia. 2. Diverticulosis without diverticulitis. 3. Mild cardiomegaly. 4. 3.1 cm left renal cyst. COMMENTS: Consistent with the [employer]'s Incidental Findings Committee white paper (J Am Deneen Radiol 2018): Any incidental renal lesion less than 1 cm or classified as too small to characterize, or any incidental cystic renal lesion characterized as simple-appearing, is likely benign. No follow-up imaging is recommended for these lesions per consensus recommendations based on imaging criteria. Radiation Dose CTDIVOL = (mGy): DLP = (mGy-cm)
[2020-07-27] MEDS: sodium chloride 0.9% 1,000 ML 999 ML IV (23:12)
--- NOTE | 2020-07-27 23:16 | CTR_ITS ---
PROCEDURE INFORMATION: Exam: CT Cervical Spine Without Contrast Exam date and time: 07/27/2020 11:42 PM Age: 79 years old Clinical indication: Injury or trauma; Blunt trauma; Patient HX: Syncope and fall TECHNIQUE: Imaging protocol: Computed tomography images of the cervical spine without contrast. Radiation optimization: All CT scans at this facility use at least one of these dose optimization techniques: automated exposure control; mA and/or kV adjustment per patient size (includes targeted exams where dose is matched to clinical indication); or iterative reconstruction. COMPARISON: No relevant prior studies available. RADIATION DOSE METRICS: Total DLP (mGy-cm): 945.12 FINDINGS: Bones/joints: No acute fracture. Normal alignment. Discs/Spinal canal/Neural foramina: Small disc osteophyte complexes. Mild to moderate uncovertebral and facet arthrosis. [id number] foraminal stenosis, greatest at the C4-C5 and C5-C6 levels. Moderate canal stenosis at C5-C6. Lungs: Lung apices are normal. Soft tissues: Unremarkable. CT/CT cervical spin wo con* [id number] IMPRESSION: No acute findings. Radiation Dose CTDIVOL = (mGy): DLP = 945.12 (mGy-cm)
--- NOTE | 2020-07-27 23:16 | CTR_ITS ---
PROCEDURE INFORMATION: Exam: CT Head Without Contrast Exam date and time: 07/27/2020 11:42 PM Age: 79 years old Clinical indication: Syncope and collapse; Patient HX: Syncope episode; Additional info: Fall TECHNIQUE: Imaging protocol: Computed tomography of the head without contrast. Radiation optimization: All CT scans at this facility use at least one of these dose optimization techniques: automated exposure control; mA and/or kV adjustment per patient size (includes targeted exams where dose is matched to clinical indication); or iterative reconstruction. COMPARISON: No relevant prior studies available. RADIATION DOSE METRICS: Total DLP (mGy-cm): 921.59 FINDINGS: Brain: No evidence of acute infarct. No mass or mass effect. No intra axial hemorrhage. No extra axial fluid collection or hemorrhage. Cerebral ventricles: Symmetric and without enlargement. Bones/joints: No acute fracture. Paranasal sinuses: Visualized sinuses are well aerated. Mastoid air cells: Visualized mastoid air cells are well aerated. Soft tissues: No concerning abnormalities. CT/CT head wo con* [id number] IMPRESSION: No acute intracranial abnormality. Radiation Dose CTDIVOL = (mGy): DLP = 921.59 (mGy-cm)
[2020-07-27 23:19] LABS: Basophils % 0.3 %; Eosinophils # 0.1 10^3/uL (0.0-0.8); Eosinophils % 1.5 %; Hematocrit 52.3 % (42.0-52.0); Lymphocytes # 0.6 10^3/uL (0.8-4.8); Lymphocytes % 7.6 %; Mean Corpuscular HGB Conc 32.5 g/dL (30.0-36.0); Mean Corpuscular Hemoglobin 30.1 pg (28.0-34.0); Mean Corpuscular Volume 92.6 fL (80-94); Mean Platelet Volume 11.5 fL (7.4-10.4); Monocytes # 0.5 10^3/uL (0.2-0.9); Monocytes % 5.8 %; Neutrophils # 6.65 10^3/uL (1.8-7.7); Neutrophils % 84.5 %; Nucleated Red Blood Cells % 0 %; Platelet Count 254 10^3/cmm (130-400); Red Blood Count 5.65 10^6/uL (4.1-5.3); Red Cell Distribution Width 12.8 % (12.1-15.1); White Blood Count 7.9 10^3/uL (4.0-10.0)
--- NOTE | 2020-07-27 23:33 | W.ED.NAVMDI ---
HPI - Nausea/Vomiting/Diarrhea General: Chief complaint: Nausea/Vomiting/Diarrhea Stated complaint: diarrhea Time Seen by Provider: 07/27/20 22:32 History of Present Illness: HPI Narrative: 79-year-old gentleman presents with nausea vomiting and diarrhea. He notes that after eating [place] food last Tuesday, he has not felt well all week. He has had episodes of diarrhea with some stomach cramping. He got it again tonight after eating at home. No fever. No blood in the stool. MD elicited complaint: nausea, vomiting and diarrhea Onset (ago): hour(s) Description of vomiting: bilious Description of diarrhea: watery Associated nausea: Yes Associated abdominal pain: Yes Location of pain: Diffuse Radiation: diffuse Pain consistency: intermittent Severity: moderate Quality: cramping Exacerbating factors: eating Relieving factors: none Associated symtoms: Reports bloating, diaphoresis, dizziness, anorexia and nausea; Denies change in vision, chest pain, cough, dysuria, fecal incontinence, fevers/chills or palpitations Review of Systems Const: Reports: diaphoresis Eyes: Denies: change in vision ENMT: Denies: throat pain Card: Denies: chest pain, palpitations or irregular heart rhythm Resp: Denies: dyspnea, productive cough or non-productive cough GI: Reports: nausea and bloating; Denies: fecal incontinence : Denies: flank pain, difficulty urinating or dysuria Neuro: Reports: dizziness PFSH ED PFSH: Medical History (Updated 07/28/20 @ 02:47 by Raheem Szymanski DO) GERD (gastroesophageal reflux disease) Hypercholesterolemia Hypertension Surgical History History of medial meniscus repair of right knee Status post Dupuytren's fasciectomy Family History Other Cancer Hyperlipidemia Hypertension Lung disease Stroke Denies family history of Diabetes CAD (coronary artery disease) Clotting disorder Dementia Psychiatric illness Chronic kidney disease (CKD) Suicide Anesthesia complication Bleeding disorder Family history of premature coronary artery disease Social History Smoking and tobacco status: never smoked Alcohol intake: current Alcohol intake frequency: holidays/special occasions only Physical Exam Const: GENERAL APPEARANCE: well developed ORIENTATION/CONSCIOUSNESS: Yes oriented to person, Yes oriented to place and Yes oriented to time HENMT: COMMON NORMALS: normocephalic, external ears normal and Normal external nose present HEAD & SCALP: normocephalic FACE & SINUS: normal facial exam NOSE: Normal external nose present and No nasal discharge present EXTERNAL EAR: Yes external ears normal Eye: COMMON NORMALS: Equal, round and reactive pupils present, EOMs intact bilaterally and conjunctivae normal EYELID: eyelids normal CONJUNCTIVA: Yes conjunctivae normal PUPIL: Yes Equal, round and reactive pupils present Chest: COMMONS NORMALS: normal inspection of the chest CHEST: No tenderness Resp: COMMON NORMALS: clear to auscultation bilaterally EFFORT & INSPECTION: No tachypneic, No respiratory distress, No retractions, No uses accessory muscles and No tracheal deviation AUSCULTATION: clear to auscultation bilaterally, no rhonchi, no wheezes and lung sounds not diminished Cardio: COMMON NORMALS: regular rate and regular rhythm RATE: regular rate RHYTHM: regular rhythm HEART SOUNDS: no murmurs PERIPHERAL PULSES: radial pulses present GI: INSPECTION: Yes abdominal distension AUSCULTATION: No Hyperactive bowel sounds present and No Hypoactive bowel sounds present PALPATION: Yes Tenderness to palpation present (GI) (Diffuse), No Guarding due to palpation present (GI) and No Rigid due to palpation PERCUSSION: dullness to percussion and no tympanic to percussion Neuro: SENSORIUM/ORIENTATION: Yes oriented to person, Yes oriented to place and Yes oriented to time Psych: COMMON NORMALS: mental status grossly normal Skin: COMMON NORMALS: no rashes or lesions noted GENERAL SKIN EXAM: no rashes or lesions noted Course Vital Signs: Vital signs: Vital Signs Temperature 98.5 F 07/27/20 22:23 Pulse Rate 62 07/28/20 01:26 Respiratory Rate 15 07/28/20 01:26 Blood Pressure 121/77 07/28/20 01:26 Pulse Oximetry 97 07/28/20 01:26 MDM - Nausea/Vomiting/Diarrhea MDM Narrative: Medical decision making narrative: 79-year-old gentleman here with vomiting and diarrhea. 2 episodes of vomiting since arrival, but none since administration of antiemetic. He has received 2 L of fluid. Before he received any fluid or medication, he had gotten up to vomit in the sink in the room, and had essentially a brief syncopal episode. His heart rate sent to low 40s, and his blood pressure dropped as well. He may or may not have hit his head on the floor on the way down. He recovered quickly with increase in his heart rate and blood pressure. He has been asymptomatic regarding that since. Head CT is negative. 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 His hemoglobin is 17 with a white blood cell count of 8. BUN and creatinine are 27 and 1.6 respectively. Electrolytes are normal. EKG following his episode showed a sinus rhythm with no acute ST changes, axis and intervals were normal. CT of the abdomen pelvis does not show any cause of the vomiting and diarrhea. Suspect gastroenteritis, although I suppose gallbladder dysfunction is on the differential. He has walked in the ER after 2 L and feels well. We will allow discharge at this point. Lab Data: Labs: Lab Results 07/27/20 07/27/20 07/27/20 Range/Units 23:00 23:00 23:00 WBC 7.9 (4.0-10.0) 10^3/ uL RBC 5.65 H (4.1-5.3) 10^6/u L Hgb 17.0 H (11.7-16.6) g/dL Hct 52.3 H (42.0-52.0) % MCV 92.6 (80-94) fL MCH 30.1 (28.0-34.0) pg MCHC 32.5 (30.0-36.0) g/dL RDW 12.8 (12.1-15.1) % Plt Count 254 (130-400) 10^3/c mm MPV 11.5 H (7.4-10.4) fL Neut % (Auto) 84.5 % Lymph % (Auto) 7.6 % Knott % (Auto) 5.8 % Eos % (Auto) 1.5 % Baso % (Auto) 0.3 % Neut # (Auto) 6.65 (1.8-7.7) 10^3/u L Lymph # (Auto) 0.6 L (0.8-4.8) 10^3/u L Knott # (Auto) 0.5 (0.2-0.9) 10^3/u L Eos # (Auto) 0.1 (0.0-0.8) 10^3/u L Baso # (Auto) 0.0 (0.0-0.1) 10^3/u L Nucleated RBC % (a uto) 0 % Nucleated RBCs # 0.0 /100WBC Sodium 141 (136-145) mmol/L Potassium 4.4 (3.5-5.1) mmol/L Chloride 105 (98-107) mmol/L Carbon Dioxide 24 (22-29) mmol/L Anion Gap 16.4 (5-19) BUN 27 H (8-23) mg/dL Creatinine 1.6 H (0.7-1.2) mg/dL GFR Calculation Not Reportable Glucose 131 H (65-115) mg/dL Calculated Osmolal ity 299 H (285-295) mOsm/k g Lactate 1.1 (0.5-2.2) mmol/L Calcium 9.3 (8.5-10.5) mg/dL Total Bilirubin 0.4 (0.15-1.2) mg/dL AST 15 (0-40) U/L ALT 18 (0-41) U/L Alkaline Phosphata se 45 (40-130) IU/L C-Reactive Protein 4.6 (0.0-4.9) mg/L Total Protein 7.5 (6.6-8.7) g/dL Albumin 4.2 (3.5-5.2) g/dL Globulin 3.3 (1.3-4.6) g/dL Lipase 20 (13-60) U/L Urine Color (Yellow) Urine Appearance (CLEAR) Urine pH (5-7) Ur Specific Gravit y (1.005-1.030) Urine Protein (Negative) Urine Glucose (UA) (Normal) Urine Ketones (Negative) Urine Blood (Negative) Urine Nitrate (Negative) Urine Bilirubin (Negative) Urine Urobilinogen (Negative) mg/dL Ur Leukocyte Sudha ase (Negative) 07/28/20 Range/Units 01:45 WBC (4.0-10.0) 10^3/ uL RBC (4.1-5.3) 10^6/u L Hgb (11.7-16.6) g/dL Hct (42.0-52.0) % MCV (80-94) fL MCH (28.0-34.0) pg MCHC (30.0-36.0) g/dL RDW (12.1-15.1) % Plt Count (130-400) 10^3/c mm MPV (7.4-10.4) fL Neut % (Auto) % Lymph % (Auto) % Knott % (Auto) % Eos % (Auto) % Baso % (Auto) % Neut # (Auto) (1.8-7.7) 10^3/u L Lymph # (Auto) (0.8-4.8) 10^3/u L Knott # (Auto) (0.2-0.9) 10^3/u L Eos # (Auto) (0.0-0.8) 10^3/u L Baso # (Auto) (0.0-0.1) 10^3/u L Nucleated RBC % (a uto) % Nucleated RBCs # /100WBC Sodium (136-145) mmol/L Potassium (3.5-5.1) mmol/L Chloride (98-107) mmol/L Carbon Dioxide (22-29) mmol/L Anion Gap (5-19) BUN (8-23) mg/dL Creatinine (0.7-1.2) mg/dL GFR Calculation Glucose (65-115) mg/dL Calculated Osmolal ity (285-295) mOsm/k g Lactate (0.5-2.2) mmol/L Calcium (8.5-10.5) mg/dL Total Bilirubin (0.15-1.2) mg/dL AST (0-40) U/L ALT (0-41) U/L Alkaline Phosphata se (40-130) IU/L C-Reactive Protein (0.0-4.9) mg/L Total Protein (6.6-8.7) g/dL Albumin (3.5-5.2) g/dL Globulin (1.3-4.6) g/dL Lipase (13-60) U/L Urine Color Yellow (Yellow) Urine Appearance Clear (CLEAR) Urine pH 5 (5-7) Ur Specific Gravit y 1.020 (1.005-1.030) Urine Protein Neg (Negative) Urine Glucose (UA) Norm (Normal) Urine Ketones Negative (Negative) Urine Blood Neg (Negative) Urine Nitrate Negative (Negative) Urine Bilirubin 1+ H (Negative) Urine Urobilinogen Norm (Negative) mg/dL Ur Leukocyte Sudha ase Negative (Negative) Discharge Plan Discharge Patient Disposition: Home Clinical Impression: Gastroenteritis Syncope Qualifiers: Syncope type: vasovagal syncope Qualified Code(s): R55 - Syncope and collapse Condition: Stable Prescriptions: New Zofran 4 mg tablet 4 mg PO Q6H PRN (Reason: nausea and vomiting) Qty: 10 RF: 0 Lomotil 2.5-0.025 mg tablet 1 tab PO BID PRN (Reason: diarrhea) Qty: 10 RF: 0 No Action omeprazole 20 mg capsule,delayed release(DR/EC) 20 mg PO DAILY RF: 0 amlodipine 10 mg tablet 10 mg PO DAILY RF: 0 simvastatin 10 mg tablet 10 mg PO DAILY RF: 0 levothyroxine 50 mcg capsule 50 mcg PO DAILY RF: 0 aspirin 81 mg tablet,delayed release (DR/EC) 81 mg PO DAILY RF: 0 Fish Oil 120-180 mg capsule 1 cap PO DAILY RF: 0 saw palmetto 160 mg capsule 160 mg PO BID RF: 0 Probiotic 3 billion cell capsule 3,000 mmu cells PO DAILY RF: 0 selenium 200 mcg capsule 200 mcg PO DAILY RF: 0 psyllium husk [Metamucil] 0.4 gram capsule 0.4 gm PO DAILY RF: 0 fluticasone propionate 50 mcg/actuation spray,suspension 1 spray INTRANASAL DAILY RF: 0 bupivacaine (PF) 0.5 % (5 mg/mL) kit 5 mg intradermal ONCE Qty: 1 RF: 0 valsartan 320 mg tablet 320 mg PO DAILY RF: 0 triamcinolone acetonide 0.1 % ointment 1 applic topical BID Qty: 80 RF: 1 Discharge Orders: Discharge ED (Routine); Ordered 07/28/20 Ordered By: Raheem Szymanski Referrals: Abe Fairbanks MD [Primary Care Provider] - 1-3 days Discharge Diet: Advance as tolerated and Clear Liquid Discharge Activity: Increase activity as tolerated Patient Instructions: Syncope (ED), Gastroenteritis (ED) Activity Restrictions/Additional Instructions: Return for vomiting despite treatment, diarrhea despite treatment, blood in the stool, repeated episodes of syncope or passing out, worsening belly discomfort, any other concerning symptoms. Follow-up with your doctor this week, as further outpatient testing may be warranted. Coding Level of Care Code ED [employer] Co[employer] Operator for Chg Fwd Exam Comprehensive
[2020-07-27 23:38] LABS: Lactate (Lactic Acid level) 1.1 mmol/L (0.5-2.2)
[2020-07-27 23:39] LABS: Alanine Aminotransferase 18 U/L (0-41); Albumin Level 4.2 g/dL (3.5-5.2); Alkaline Phosphatase 45 IU/L (40-130); Anion Gap 16.4 (5-19); Aspartate Amino Transferase 15 U/L (0-40); Blood Urea Nitrogen 27 mg/dL (8-23); C Reactive Protein 4.6 mg/L (0.0-4.9); Calcium 9.3 mg/dL (8.5-10.5); Carbon Dioxide 24 mmol/L (22-29); Chloride 105 mmol/L (98-107); Globulin 3.3 g/dL (1.3-4.6); Glucose 131 mg/dL (65-115); Lipase 20 U/L (13-60); Osmolality Calculated 299 mOsm/kg (285-295); Potassium 4.4 mmol/L (3.5-5.1); Sodium 141 mmol/L (136-145); Total Bilirubin 0.4 mg/dL (0.15-1.2); Total Protein 7.5 g/dL (6.6-8.7)
[2020-07-28] MEDS: ondansetron 2 mg/ML SDV 2 mL 4 MG IVP (01:23)
[2020-07-28] MEDS: sodium chloride 0.9% 1,000 ML 999 ML IV (01:23)
[2020-07-28 01:26] VITALS: BP 121/77; PULSE 62; RESP 15; O2SAT 97
[2020-07-28 01:58] LABS: Add Urine Microscopic? NO
[2020-07-28 02:00] VITALS: BP 122/73; PULSE 65; RESP 15; O2SAT 97
[2020-07-28 02:00] LABS: Bilirubin Urine 1+ (Negative); Blood Urine Neg (Negative); Glucose Urine UA Norm (Normal); Ketones Urine Negative (Negative); Leukocyte Esterase Urine Negative (Negative); Nitrate Urine Negative (Negative); Protein Urine Neg (Negative); Urine Appearance Clear (CLEAR); Urine Color Yellow (Yellow); Urobilinogen Urine Norm (Negative); pH Urine 5 (5-7)
[2020-07-28 02:59] VITALS: BP 121/66; PULSE 66; RESP 16; O2SAT 96
== END 2020-07-28 03:00 | disposition home or self-care (01) ==
PROVIDERS: Emergency Provider Emergency Medicine; PCP Family Medicine
DX: K52.9 Noninfective gastroenteritis and colitis, unspecified (principal); R55 Syncope and collapse; Z79.82 Long term (current) use of aspirin; I10 Essential (primary) hypertension
CPT/HCPCS: 70450; 72125; 74176; 80053; 81003; 83605; 83690; 85025; 86140; 96361; 96374; 99284; J2405; J7030

== ENCOUNTER 2021-02-18 06:00 | Outpatient (RCR) | payer MEDICARE, OTHER, SELFPAY | END 2021-03-01 23:59 | disposition home or self-care (01) | LOC: SPT 06:00 | PROVIDERS: PCP Family Medicine; Referring Provider Family Medicine; Visit Provider Family Medicine | DX: M54.32 Sciatica, left side (principal) | CPT/HCPCS: 97110; 97161 ==

== ENCOUNTER 2021-03-02 06:00 | Outpatient (RCR) | payer MEDICARE, OTHER, SELFPAY | END 2021-03-31 23:59 | disposition home or self-care (01) | LOC: SPT 06:00 | PROVIDERS: PCP Family Medicine; Visit Provider Family Medicine | DX: M54.32 Sciatica, left side (principal) | CPT/HCPCS: 97110 ==

== ENCOUNTER 2021-04-01 06:00 | Outpatient (RCR) | payer MEDICARE, OTHER, SELFPAY | END 2021-05-01 23:59 | disposition home or self-care (01) | LOC: SPT 06:00 | PROVIDERS: PCP Family Medicine; Visit Provider Family Medicine | DX: M54.32 Sciatica, left side (principal) | CPT/HCPCS: 97110 ==

== ENCOUNTER 2021-05-15 09:39 | Emergency (ER) | payer MEDICARE, OTHER, SELFPAY ==
[2021-05-15] VITALS (7 sets, daily range): BP systolic 126–162; BP diastolic 67–91; PULSE 45–80; RESP 15–21; TEMP 36.6; O2SAT 93–100; BMI 28.5
--- NOTE | 2021-05-15 09:45 | W.ED.LOWEXIN ---
HPI - Extremity Injury (Lower) General: Chief Complaint: Extremity Injury, Lower Stated Complaint: LEFT LEG INJURY Time Seen by Provider: 05/15/21 09:44 History of Present Illness: HPI Narrative: 80-year-old male presents emergency room with complaints of left thigh pain. He was walking in his home last evening and caught his left medial thigh anteriorly on the edge of some furniture. Since then he has had increasing swelling and severe pain he states he feels like there is a knot in his thigh. Movement is exquisitely tender. He has been using ice pack and ibuprofen which has not helped. He has not had any numbness or tingling distally. Movement palpation worse and rest improves. MD complaint: thigh injury Onset (ago): hour(s) Place: home Severity: mild Relieving factors: nothing Exacerbating factors: weight bearing, movement and palpation Associated symptoms: Reports no associated symptoms Other symptoms: none Review of Systems Const: Denies: fever(s), chills, body aches, change in appetite, fatigue or malaise ENMT: Denies: throat pain, ear or mastoid pain, nasal discharge or nasal congestion Card: Denies: chest pain, edema, dyspnea on exertion or orthopnea Resp: Denies: dyspnea, productive cough or non-productive cough GI: Denies: abdominal pain, nausea, vomiting, hematemesis, coffee ground emesis, diarrhea, constipation, bloating, hematochezia or melena : Denies: flank pain, dysuria, urinary frequency or urinary urgency Skin/Breast: Denies: rash or pruritus [facility] ED PFSH: Medical History (Updated 05/15/21 @ 14:14 by Curly Ledbetter DO) GERD (gastroesophageal reflux disease) Hypercholesterolemia Hypertension Surgical History History of medial meniscus repair of right knee Status post Dupuytren's fasciectomy Family History Other Cancer Hyperlipidemia Hypertension Lung disease Stroke Denies family history of Diabetes CAD (coronary artery disease) Clotting disorder Dementia Psychiatric illness Chronic kidney disease (CKD) Suicide Anesthesia complication Bleeding disorder Family history of premature coronary artery disease Social History Smoking and tobacco status: never smoked Alcohol intake: current Alcohol intake frequency: holidays/special occasions only Physical Exam Const: COMMON NORMALS: no acute distress GENERAL APPEARANCE: cooperative and comfortable ORIENTATION/CONSCIOUSNESS: Yes awake, Yes oriented to person, Yes oriented to place and Yes oriented to time HENMT: COMMON NORMALS: normocephalic, atraumatic and hearing grossly normal bilaterally HEAD & SCALP: normocephalic and atraumatic Neck/C-Spine: COMMON NORMALS: no JVD Resp: COMMON NORMALS: normal respiratory effort, No retractions, No use of accessory muscles and clear to auscultation bilaterally AUSCULTATION: clear to auscultation bilaterally Cardio: COMMON NORMALS: no JVD, regular rate, regular rhythm and No murmurs present (Cardio) RATE: regular rate RHYTHM: regular rhythm GI: COMMON NORMALS: Soft to palpation and No hepatosplenomegaly present AUSCULTATION: Yes normoactive bowel sounds PALPATION: Yes Soft to palpation, No Tenderness to palpation present (GI), No Guarding due to palpation present (GI) and Yes No hepatosplenomegaly present Extremity: COMMON NORMALS: normal to inspection, capillary refill normal, no clubbing, cyanosis or edema, no calf tenderness and no pedal edema NARRATIVE EXTREMITY EXAM: Significant swelling mid anterior left thigh extremely tender to the touch mild discomfort with passive range of motion Neuro: SENSORIUM/ORIENTATION: Yes oriented to person, Yes oriented to place and Yes oriented to time Skin: COMMON NORMALS: no rashes or lesions noted GENERAL SKIN EXAM: no rashes or lesions noted Course Vital Signs: Vital signs: Vital Signs Temperature 97.8 F 05/15/21 09:51 Pulse Rate 80 05/15/21 14:24 Respiratory Rate 21 H 05/15/21 14:24 Blood Pressure 150/81 05/15/21 14:24 Pulse Oximetry 93 05/15/21 14:24 MDM - Extremity Injury (Lower) MDM Narrative: Medical decision making narrative: Hematoma on ultrasound. Shortly after patient arrived here his pain worsened and he had a near syncopal episode he had this multiple times before with pain with blood draws he recovered from that without difficulty. Ultrasound shows a large hematoma not amenable to drainage at this point. We will discharge him home with hydrocodone. He does have a slightly elevated potassium and creatinine should follow-up with his primary care doctor for that. Lab Data: Labs: Lab Results 05/15/21 05/15/21 05/15/21 12:56 12:56 14:00 WBC 10.5 10^3/uL H 10 ^3/uL (4.0-10.0) RBC 4.45 10^6/uL 10^6 /uL (4.1-5.3) Hgb 13.4 g/dL g/dL (11.7-16.6) Hct 40.9 % L % (42.0-52.0) MCV 91.9 fl fl (80-94) MCH 30.1 pg pg (28.0-34.0) MCHC 32.8 g/dL g/dL (30.0-36.0) RDW 12.6 % % (12.1-15.1) Plt Count 225 10^3/cmm 10^3 /cmm (130-400) MPV 11.4 fL H fL (7.4-10.4) Neut % (Auto) 86.6 % % Lymph % (Auto) 6.5 % % Gove % (Auto) 5.6 % % Eos % (Auto) 0.7 % % Baso % (Auto) 0.2 % % Neut # (Auto) 9.05 10^3/uL H 10 ^3/uL (1.8-7.7) Lymph # (Auto) 0.7 10^3/uL L 10^ 3/uL (0.8-4.8) Gove # (Auto) 0.6 10^3/uL 10^3/ uL (0.2-0.9) Eos # (Auto) 0.1 10^3/uL 10^3/ uL (0.0-0.8) Baso # (Auto) 0.0 10^3/uL 10^3/ uL (0.0-0.1) Nucleated RBC % (a uto) 0 % % Nucleated RBCs # 0.0 /100WBC /100W BC Sodium Cancelled 136 mmol/L mmol/L (136-145) Potassium Cancelled 5.2 mmol/L H mmol /L (3.5-5.1) Chloride Cancelled 103 mmol/L mmol/L (98-107) Carbon Dioxide Cancelled 21 mmol/L L mmol/ L (22-29) Anion Gap Cancelled 17.2 (5-19) BUN Cancelled 19 mg/dL mg/dL (8-23) Creatinine Cancelled 1.3 mg/dL H mg/dL (0.7-1.2) GFR Calculation Cancelled Not Reportable Glucose Cancelled 98 mg/dL mg/dL (65-115) Calculated Osmolal ity Cancelled 284 mOsm/kg L mOs m/kg (285-295) Calcium Cancelled 8.3 mg/dL L mg/dL (8.5-10.5) Total Bilirubin Cancelled 0.5 mg/dL mg/dL (0.15-1.2) AST Cancelled 12 U/L U/L (0-40) ALT Cancelled 12 U/L U/L (0-41) Alkaline Phosphata se Cancelled 39 IU/L L IU/L (40-130) Total Protein Cancelled 6.3 g/dL L g/dL (6.6-8.7) Albumin Cancelled 3.8 g/dL g/dL (3.5-5.2) Globulin Cancelled 2.5 g/dL g/dL (1.3-4.6) Discharge Plan Discharge Patient Disposition: Home Clinical Impression: Hematoma of left thigh, Vasovagal near-syncope Condition: Stable Prescriptions: New hydrocodone-acetaminophen 5-325 mg tablet 1 tab PO Q6H PRN (Reason: pain) Qty: 25 RF: 0 No Action triamcinolone acetonide 0.1 % ointment 1 applic topical BID Qty: 80 RF: 1 omeprazole 20 mg capsule,delayed release(DR/EC) 20 mg PO DAILY RF: 0 amlodipine 10 mg tablet 10 mg PO DAILY RF: 0 simvastatin 10 mg tablet 10 mg PO DAILY RF: 0 levothyroxine 50 mcg capsule 50 mcg PO DAILY RF: 0 aspirin 81 mg tablet,delayed release (DR/EC) 81 mg PO DAILY RF: 0 Probiotic 3 billion cell capsule 3,000 mmu cells PO DAILY RF: 0 selenium 200 mcg capsule 200 mcg PO DAILY RF: 0 psyllium husk [Metamucil] 0.4 gram capsule 0.4 gm PO DAILY RF: 0 fluticasone propionate 50 mcg/actuation spray,suspension 1 spray INTRANASAL DAILY RF: 0 valsartan 320 mg tablet 320 mg PO DAILY RF: 0 Discharge Orders: Discharge ED (Routine); Ordered 05/15/21 Ordered By: Curly Ledbetter Referrals: Abe Fairbanks MD [Primary Care Provider] - Discharge Diet: Usual diet Discharge Activity: Resume usual activity Patient Instructions: Opioid Safety Activity Restrictions/Additional Instructions: Follow-up with your primary care doctor in the next 2 to 3 days to repeat hemoglobin and reevaluate. Ice to the left thigh for discomfort. Coding Level of Care Code ED Proposition Player for Chg Fwd Exam Comprehensive
--- NOTE | 2021-05-15 10:07 | US_ITS ---
WS: [id number] LEFT LOWER EXTREMITY SOFT TISSUE ULTRASOUND CLINICAL INFORMATION: L anterior thigh hematoma COMPARISON: None. FINDINGS: Ultrasound area of concern in the left anterior thigh. There is a hypoechoic well-circumscr ibed lesion most compatible with hematoma considering clinical history measuring 3.6 x 1.3 x 1.5 CM. Small amount of edema in the anterior thigh. The left common femoral, femoral, deep femoral, and popliteal, veins are normally compressible. US/US soft tissue/extremity [id number] IMPRESSION: There is a hypoechoic well-circumscribed lesion most compatible with hematoma c onsidering clinical history measuring 3.6 x 1.3 x 1.5 CM in the area of interes t
[2021-05-15] MEDS: HYDROcodone-acetaminophen 5-325 mg Tablet 2 TAB PO (10:52)
--- NOTE | 2021-05-15 11:42 | ECG_ITS ---
[facility] Test Date: 2021-05-15 Pat Name: Dick Wiseman Department: Room: Gender: Male Esol Instructor: : 1940 Requested By: Curly Alexander Order Number: [id number] Reading MD: RAJINDER HANKINS Measurements Intervals Wheeler Rate: 49 P: 139 WI: 162 QRS: -16 QRSD: 85 T: -27 QT: 408 QTc: 368 Interpretive Statements SINUS BRADYCARDIA NONSPECIFIC T-WAVE ABNORMALITY Compared to ECG 10/31/2019 15:06:32 Sinus rhythm no longer present T-wave abnormality still present Electronically Signed On 05-15-2021 18:14:44 LODGING FACILITIES ATTENDANT by RAJINDER HANKINS [id number] f
--- NOTE | 2021-05-15 11:51 | PC.NURSE ---
PATIENT TRANSFERRED TO 11 AFTER BECOMING CLAMMY AND NEAR SYNCOPE IN VERTICAL FLOW. SEAN OBRIEN, GAVE PATIENT NORCO AND PATIENT BECAME FAINT SHORTLY AFTER. PATIENT COLD AND CLAMMY. PATIENT CLOTHING REMOVED, IV INITIATED, AND PLACED ON MACHINIST SET UP AND NC O2.
[2021-05-15] MEDS: sodium chloride 0.9% 500 ML 999 ML IV (11:52)
[2021-05-15 13:04] LABS: Basophils % 0.2 %; Eosinophils # 0.1 10^3/uL (0.0-0.8); Eosinophils % 0.7 %; Hematocrit 40.9 % (42.0-52.0); Hemoglobin 13.4 g/dL (11.7-16.6); Lymphocytes # 0.7 10^3/uL (0.8-4.8); Lymphocytes % 6.5 %; Mean Corpuscular HGB Conc 32.8 g/dL (30.0-36.0); Mean Corpuscular Hemoglobin 30.1 pg (28.0-34.0); Mean Corpuscular Volume 91.9 fl (80-94); Mean Platelet Volume 11.4 fL (7.4-10.4); Monocytes # 0.6 10^3/uL (0.2-0.9); Monocytes % 5.6 %; Neutrophils # 9.05 10^3/uL (1.8-7.7); Neutrophils % 86.6 %; Nucleated Red Blood Cells % 0 %; Platelet Count 225 10^3/cmm (130-400); Red Blood Count 4.45 10^6/uL (4.1-5.3); Red Cell Distribution Width 12.6 % (12.1-15.1); White Blood Count 10.5 10^3/uL (4.0-10.0)
[2021-05-15 14:30] LABS: Alanine Aminotransferase 12 U/L (0-41); Albumin Level 3.8 g/dL (3.5-5.2); Alkaline Phosphatase 39 IU/L (40-130); Anion Gap 17.2 (5-19); Aspartate Amino Transferase 12 U/L (0-40); Blood Urea Nitrogen 19 mg/dL (8-23); Calcium 8.3 mg/dL (8.5-10.5); Carbon Dioxide 21 mmol/L (22-29); Chloride 103 mmol/L (98-107); Globulin 2.5 g/dL (1.3-4.6); Glucose 98 mg/dL (65-115); Osmolality Calculated 284 mOsm/kg (285-295); Potassium 5.2 mmol/L (3.5-5.1); Sodium 136 mmol/L (136-145); Total Bilirubin 0.5 mg/dL (0.15-1.2); Total Protein 6.3 g/dL (6.6-8.7)
== END 2021-05-15 14:25 | disposition home or self-care (01) ==
PROVIDERS: Emergency Provider Family Medicine; PCP Family Medicine
DX: S70.12XA Contusion of left thigh, initial encounter (principal); R55 Syncope and collapse; Z79.82 Long term (current) use of aspirin; I10 Essential (primary) hypertension; W22.03XA Walked into furniture, initial encounter
CPT/HCPCS: 36415; 76882; 80053; 85025; 93005; 99284; J7040

== ENCOUNTER → 2021-05-25 16:52 | Outpatient (BNVA) | payer MEDICARE, OTHER, SELFPAY | PROVIDERS: PCP Family Medicine; Visit Provider Nurse Practitioner Family | DX: Z20.822 Contact with and (suspected) exposure to COVID-19 (principal) | CPT/HCPCS: 87635 ==

== ENCOUNTER → 2022-04-06 14:23 | Outpatient (BNVA) | payer MEDICARE, OTHER, SELFPAY | PROVIDERS: PCP Family Medicine; Visit Provider Podiatrist Foot & Ankle Surgery | DX: G57.61 Lesion of plantar nerve, right lower limb (principal); M21.41 Flat foot [pes planus] (acquired), right foot; M21.42 Flat foot [pes planus] (acquired), left foot | CPT/HCPCS: 64455; 73630; J1100; J3301; J3490 ==

== ENCOUNTER → 2022-05-19 10:13 | Outpatient (BNVA) | payer MEDICARE, OTHER, SELFPAY | PROVIDERS: PCP Family Medicine; Visit Provider Podiatrist Foot & Ankle Surgery | DX: G57.61 Lesion of plantar nerve, right lower limb (principal); M21.40 Flat foot [pes planus] (acquired), unspecified foot; M79.671 Pain in right foot | CPT/HCPCS: 64455 ==

== ENCOUNTER → 2022-06-24 14:13 | Outpatient (BNVA) | payer MEDICARE, OTHER, SELFPAY | PROVIDERS: PCP Family Medicine; Visit Provider Dermatology | DX: L82.1 Other seborrheic keratosis (principal) | CPT/HCPCS: 88305 ==

== ENCOUNTER → 2022-07-21 09:57 | Outpatient (BNVA) | payer MEDICARE, OTHER, SELFPAY | PROVIDERS: PCP Family Medicine; Visit Provider Podiatrist Foot & Ankle Surgery | DX: G57.61 Lesion of plantar nerve, right lower limb (principal); M21.41 Flat foot [pes planus] (acquired), right foot; M21.42 Flat foot [pes planus] (acquired), left foot | CPT/HCPCS: 64455; 99213 ==

== ENCOUNTER → 2023-03-07 07:53 | Outpatient (BNVA) | payer MEDICARE, OTHER, SELFPAY | PROVIDERS: PCP Family Medicine; Visit Provider Podiatrist Foot & Ankle Surgery | DX: G57.61 Lesion of plantar nerve, right lower limb (principal); G62.9 Polyneuropathy, unspecified; M21.42 Flat foot [pes planus] (acquired), left foot; M21.41 Flat foot [pes planus] (acquired), right foot | CPT/HCPCS: 99213 ==

== ENCOUNTER 2023-03-18 06:46 | Outpatient (CLI) | payer MEDICARE, OTHER, SELFPAY ==
--- NOTE | 2023-03-18 07:00 | US_ITS ---
WS: [id number] ULTRASOUND SOFT TISSUES RIGHT foot HISTORY: eval for Loera's neuroma at the right third COMPARISON: None available. TECHNIQUE: 2-D and color Doppler imaging is submitted. Ultrasound is directed to the third intermetatarsal space. There is no mass or soft tissue abnormalit y identified. No fluid. IMPRESSION: No Loera's neuroma identified at the third intertarsal space.
== END 2023-03-18 06:47 | disposition home or self-care (01) ==
LOC: RAD 06:46
PROVIDERS: PCP Family Medicine; Visit Provider Podiatrist Foot & Ankle Surgery
DX: G57.61 Lesion of plantar nerve, right lower limb (principal)
CPT/HCPCS: 76882

== ENCOUNTER → 2023-04-11 14:29 | Outpatient (BNVA) | payer MEDICARE, OTHER, SELFPAY | PROVIDERS: PCP Family Medicine; Visit Provider Podiatrist Foot & Ankle Surgery | DX: G57.61 Lesion of plantar nerve, right lower limb; G62.9 Polyneuropathy, unspecified; M21.41 Flat foot [pes planus] (acquired), right foot; M21.42 Flat foot [pes planus] (acquired), left foot | CPT/HCPCS: 99213 ==

== ENCOUNTER → 2023-06-23 13:04 | Outpatient (BNVA) | payer MEDICARE, OTHER, SELFPAY | PROVIDERS: PCP Family Medicine; Visit Provider Nurse Practitioner Family | DX: L57.8 Other skin changes due to chronic exposure to nonionizing radiation (principal); L72.0 Epidermal cyst; L57.0 Actinic keratosis; D22.62 Melanocytic nevi of left upper limb, including shoulder; L81.4 Other melanin hyperpigmentation; L82.1 Other seborrheic keratosis | CPT/HCPCS: 17000; 99213 ==

== ENCOUNTER → 2023-08-02 12:52 | Outpatient (BNVA) | payer MEDICARE, OTHER, SELFPAY | PROVIDERS: PCP Family Medicine; Visit Provider Podiatrist Foot & Ankle Surgery | DX: G57.61 Lesion of plantar nerve, right lower limb; G62.9 Polyneuropathy, unspecified; M21.41 Flat foot [pes planus] (acquired), right foot; M21.42 Flat foot [pes planus] (acquired), left foot | CPT/HCPCS: 99213 ==

== ENCOUNTER → 2024-02-29 08:42 | Outpatient (BNVA) | payer MEDICARE, OTHER, SELFPAY | PROVIDERS: Visit Provider Nurse Practitioner Family | DX: L57.0 Actinic keratosis (principal); L82.0 Inflamed seborrheic keratosis; L72.0 Epidermal cyst; D69.2 Other nonthrombocytopenic purpura; L81.4 Other melanin hyperpigmentation; D18.01 Hemangioma of skin and subcutaneous tissue | CPT/HCPCS: 17000; 17110; 99213 ==

== ENCOUNTER 2024-03-02 09:25 | Outpatient (RCR) | payer MEDICARE, OTHER, SELFPAY | END 2024-03-27 23:59 | disposition home or self-care (01) | LOC: SPT 09:25 | PROVIDERS: Visit Provider Family Medicine | DX: M25.551 Pain in right hip (principal); M25.552 Pain in left hip | CPT/HCPCS: 97110; 97161 ==

== ENCOUNTER 2024-05-10 06:00 | Outpatient (RCR) | payer MEDICARE, OTHER, SELFPAY | END 2024-06-01 23:59 | disposition home or self-care (01) | LOC: SPT 06:00 | PROVIDERS: Visit Provider Family Medicine | DX: M25.551 Pain in right hip (principal); M25.552 Pain in left hip | CPT/HCPCS: 97110; 97161 ==

== ENCOUNTER 2024-06-02 06:30 | Outpatient (RCR) | payer MEDICARE, OTHER, SELFPAY | END 2024-06-29 23:59 | disposition home or self-care (01) | LOC: SPT 06:30 | PROVIDERS: Visit Provider Family Medicine | DX: M25.551 Pain in right hip (principal); M25.552 Pain in left hip | CPT/HCPCS: 97110 ==

== ENCOUNTER → 2024-06-25 13:30 | Outpatient (BNVA) | payer MEDICARE, OTHER, SELFPAY | PROVIDERS: Visit Provider Nurse Practitioner Family | DX: L72.0 Epidermal cyst (principal); D23.71 Other benign neoplasm of skin of right lower limb, including hip; D69.2 Other nonthrombocytopenic purpura; L81.4 Other melanin hyperpigmentation; L57.0 Actinic keratosis | CPT/HCPCS: 17000; 99213 ==

== ENCOUNTER 2024-06-30 06:30 | Outpatient (RCR) | payer MEDICARE, OTHER, SELFPAY | END 2024-07-05 11:20 | disposition home or self-care (01) | LOC: SPT 06:30 | PROVIDERS: PCP Family Medicine; Visit Provider Family Medicine | DX: M25.551 Pain in right hip (principal); M25.552 Pain in left hip | CPT/HCPCS: 97110 ==

== ENCOUNTER 2024-07-03 23:14 | Emergency (ER) | payer MEDICARE, OTHER, SELFPAY ==
[2024-07-03 23:16] VITALS: BP 179/88; PULSE 68; RESP 18; TEMP 37.2; O2SAT 98; BMI 28.5
--- NOTE | 2024-07-03 23:19 | ECG_ITS ---
[facility]: 2024-07-03 Pat Name: Dick Wiseman Department: Room: Gender: Male Buildings And Grounds Director: : 1940 Requested By: Faustino Anguiano Order Number: [id number] Galileo MD: Christiano Foster M.D. Measurements Intervals Regent Rate: 69 P: 34 MO: 179 QRS: 44 QRSD: 93 T: 86 QT: 348 QTc: 374 Interpretive Statements SINUS RHYTHM WITH FREQUENT VENTRICULAR PREMATURE COMPLEXES Compared to ECG 05/15/2021 11:44:39 Ventricular premature complex(es) now present Sinus bradycardia no longer present T-wave abnormality no longer present Electronically Signed On 07-07-2024 18:10:34 FISH NET STRINGER by Christiano Foster M.D. [id number]
--- NOTE | 2024-07-03 23:23 | XRR_ITS ---
PROCEDURE INFORMATION: Exam: XR Chest Exam date and time: 07/03/2024 11:24 PM Age: 83 years old Clinical indication: Other: Hypertension, syncope TECHNIQUE: Imaging protocol: Radiologic exam of the chest. Views: 1 view. COMPARISON: CR XR chest 1V portable [id number] 10/31/2019 2:46 PM FINDINGS: Lungs: Low lung volumes. Mild patchy opacification in the right lung base. Pleural spaces: Unremarkable. No pleural effusion. No pneumothorax. Heart/Mediastinum: Stable cardiomediastinal silhouette. Bones/joints: Unremarkable. XR/XR chest 1V portable [id number] IMPRESSION: Mild patchy opacification in the right lung base could represent atelectasis versus infiltrate.
--- NOTE | 2024-07-03 23:23 | W.ED.GENADLT ---
HPI - General Adult General: Chief complaint: Syncope Stated complaint: high bp, syncope Time Seen by Provider: 07/03/24 23:17 History of Present Illness: Patient presents to the ER by EMS with complaints of high blood pressure and presyncopal type episode. He said about an hour ago his whole body felt like [id number] and creepy crawly sensations. He described his as when your arm goes asleep and starts waking up in it starts tingling, and has creepy crawly sensations. He said when this happened he lowered himself to the ground and then noticed his blood pressure was really high. Patient states he is back to normal now and if he would have went back to normal quicker he would not of called EMS. Patient has no other complaints at this time. Looking back patient does not know what caused this. He is never had anything like this before. He is on no new medicines. Upon arrival patient's blood pressure was 179/88. Related Data Home Medications ?Medication ?Instructions ?Recorded ?Confirmed amlodipine 10 mg tablet 10 mg PO DAILY 08/29/19 08/02/23 aspirin 81 mg tablet,delayed 81 mg PO DAILY 08/29/19 08/02/23 release fluticasone propionate 50 1 spray intranasal DAILY 08/29/19 08/02/23 mcg/actuation nasal spray,suspension lactobacillus combination no.4 3 3,000 mmu cells PO DAILY 08/29/19 08/02/23 billion cell capsule (Probiotic) levothyroxine 50 mcg capsule 50 mcg PO DAILY 08/29/19 08/02/23 omeprazole 20 mg capsule,delayed 20 mg PO DAILY 08/29/19 08/02/23 release psyllium husk 0.4 gram capsule 0.4 gm PO DAILY 08/29/19 08/02/23 (Metamucil) selenium 200 mcg capsule 200 mcg PO DAILY 08/29/19 08/02/23 simvastatin 10 mg tablet 10 mg PO DAILY 08/29/19 08/02/23 valsartan 320 mg tablet 320 mg PO DAILY 01/30/20 08/02/23 tamsulosin 0.4 mg capsule mg PO 04/11/23 08/02/23 Previous Rx's ?Medication ?Instructions ?Recorded hydrocodone 5 mg-acetaminophen 325 1 tab PO Q6H PRN pain #25 tabs 01 mg tablet triamcinolone acetonide 0.1 % 1 applic topical BID #80 grams 08/30/22 topical ointment Allergies Allergy/AdvReac Type Severity Reaction Status Date / Time iodine Allergy ALGY-Anaphy Verified 07/03/24 23:25 laxis latex Allergy ALGY-Rash Verified 07/03/24 23:25 Review of Systems General: Reports: 10 or more systems reviewed and unremarkable except in HPI and below PFSH ED PFSH: Medical History (Updated 07/04/24 @ 02:41 by Faustino Anguiano DO) GERD (gastroesophageal reflux disease) Hypertension Hypercholesterolemia Surgical History History of medial meniscus repair of right knee Status post Dupuytren's fasciectomy Family History Other Cancer Hyperlipidemia Hypertension Lung disease Stroke Denies family history of Diabetes CAD (coronary artery disease) Clotting disorder Dementia Psychiatric illness Chronic kidney disease (CKD) Suicide Anesthesia complication Bleeding disorder Family history of premature coronary artery disease Social History Smoking and tobacco/nicotine status: never used tobacco/nicotine Alcohol intake: current Alcohol intake frequency: holidays/special occasions only Substance/Drug Use: never Physical Exam Const: COMMON NORMALS: no acute distress, average body habitus, patient oriented x3, no limitations, healthy appearing, alert and well nourished HENMT: COMMON NORMALS: normocephalic, atraumatic, hearing grossly normal bilaterally, external ears normal, Normal external nose present, moist oral mucous membranes and oropharynx normal HEAD & SCALP: normocephalic and atraumatic NOSE: Normal external nose present EXTERNAL EAR: Yes external ears normal Eye: COMMON NORMALS: Equal, round and reactive pupils present, EOMs intact bilaterally, conjunctivae normal and no scleral icterus CONJUNCTIVA: Yes conjunctivae normal PUPIL: Yes Equal, round and reactive pupils present Neck/C-Spine: COMMON NORMALS: full ROM, no lymphadenopathy, supple, no meningeal signs, no JVD and Thyroid normal THYROID: Thyroid normal Chest: COMMONS NORMALS: normal inspection of the chest and normal palpation of entire chest wall Resp: COMMON NORMALS: normal respiratory effort, No retractions, No use of accessory muscles and clear to auscultation bilaterally AUSCULTATION: clear to auscultation bilaterally Cardio: COMMON NORMALS: no JVD, regular rate, regular rhythm, S1 normal heart sound present, S2 normal heart sound present, No gallops present (Cardio), No clicks present (Cardio), No murmurs present (Cardio) and No rub (Cardio) RATE: regular rate RHYTHM: regular rhythm HEART SOUNDS: S1 normal heart sound present and S2 normal heart sound present GI: COMMON NORMALS: Normal to inspection, nondistended, normoactive bowel sounds present, Soft to palpation, non-tender, No hepatosplenomegaly present and no masses PALPATION: Yes Soft to palpation and Yes No hepatosplenomegaly present Neuro: COMMON NORMALS: patient oriented x3 SENSORIUM/ORIENTATION: Yes alert MENINGEAL SIGNS: Yes no meningeal signs Course Vital Signs: Vital signs: Vital Signs Temperature 99.0 F 07/03/24 23:16 Pulse Rate 78 07/04/24 03:05 Respiratory Rate 18 07/03/24 23:16 Blood Pressure 127/82 07/04/24 03:05 Pulse Oximetry 92 07/04/24 03:05 Oxygen Delivery Me thod Room Air 07/04/24 02:30 [facility] - General Adult Medical Decision Making Lab work revealed white count 7.5, hemoglobin 16.6, BUN/creatinine 22/1.4, potassium 4.3, chest x-ray showed mild patchy opacification that could represent atelectasis versus infiltrate, TSH 3.25, baseline troponin 14, 2-hour troponin 15, delta 1, patient was given 0.2 mg clonidine 0.8 mg Flomax his blood pressure improved to 125/75, patient be discharged home. Medical Records I reviewed the patient's medical records. Lab Data I reviewed the patient's lab results. 07/03/24 22:34 07/03/24 22:34 Radiology Impressions Chest X-Ray 07/03/24 23:23 IMPRESSION: Mild patchy opacification in the right lung base could represent atelectasis versus infiltrate. Laboratory Results WBC 7.53 10^3/uL (3.29-11.43) 07/03/24 22:34 RBC 5.37 10^6/uL (3.85-5.65) 07/03/24 22:34 Hgb 16.60 g/dL (11.27-16.99) 07/03/24: Hct 49.2 % (37-53) 07/03/24: MCV 91.6 fl (82-101) 07/03/24: MCH 30.9 pg (27-33) 07/03/24: MCHC 33.7 g/dL (30-55) 07/03/24: RDW 13.0 % (12.1-15.1) 07/03/24: Plt Count 242 10^3/cmm (157-399) 07/03/24: MPV 11.3 fL (7.4-10.4) H 07/03/24: Neut % (Auto) 47.6 % 07/03/24: Lymph % (Auto) 33.7 % 07/03/24: [place] % (Auto) 10.6 % 07/03/24: Eos % (Auto) 7.0 % 07/03/24: Baso % (Auto) 0.7 % 07/03/24: Neut # (Auto) 3.58 10^3/uL (1.8-7.7) 07/03/24: Lymph # (Auto) 2.5 10^3/uL (0.8-4.8) 07/03/24: [place] # (Auto) 0.8 10^3/uL (0.2-0.9) 07/03/24: Eos # (Auto) 0.5 10^3/uL (0.0-0.8) 07/03/24: Baso # (Auto) 0.1 10^3/uL (0.0-0.1) 07/03/24: Nucleated RBC % (auto) 0 % 07/03/24: Nucleated RBCs # 0.0 /100WBC 07/03/24: Sodium 138 mmol/L (136-145) 07/03/24: Potassium 4.3 mmol/L (3.5-5.1) 07/03/24: Chloride 101 mmol/L (98-107) 07/03/24: Carbon Dioxide 25 mmol/L (22-29) 03/04/25 22:34 Anion Gap 16.3 (5-19) 07/03/24 22:34 BUN 22 mg/dL (8-23) 07/03/24 22:34 Creatinine 1.4 mg/dL (0.7-1.2) H 07/03/24 22:34 GFR Calculation Not Reportable 07/03/24 22:34 Glucose 126 mg/dL (65-115) H 07/03/24 22:34 Calculated Osmolality 291 mOsm/kg (285-295) 07/03/24 22:34 Calcium 9.9 mg/dL (8.5-10.5) 07/03/24 22:34 Magnesium 2.3 mg/dL (1.7-2.3) 07/03/24 22:34 Total Bilirubin 0.3 mg/dL (0.15-1.2) 07/03/24 22:34 AST 18 U/L (0-40) 07/03/24 22:34 ALT 19 U/L (0-41) 07/03/24 22:34 Alkaline Phosphatase 53 U/L (40-130) 07/03/24 22:34 Troponin T Baseline 14 ng/L (0-15) 07/03/24 22:34 Troponin T 120 Minute 15.01 ng/L (0-15) H 07/04/24 00:36 Delta Troponin T 1.01 ABS# (0-10) 07/04/24 00:36 Total Protein 7.4 g/dL (6.6-8.7) 07/03/24 22:34 Albumin 4.4 g/dL (3.5-5.2) 07/03/24 22:34 Globulin 3.0 g/dL (1.3-4.6) 07/03/24 22:34 TSH 3.25 uIU/mL (0.27-4.20) 07/03/24 22:34 Urine Color Yellow (Yellow) 07/03/24 23:50 Urine Appearance Clear (CLEAR) 07/03/24 23:50 Urine pH 7.0 (5-7) 07/03/24 23:50 Ur Specific [place] 1.013 (1.005-1.030) 07/03/24 23:50 Urine Protein Negative (Negative) 07/03/24 23:50 Urine Glucose (UA) Negative (Normal) 07/03/24 23:50 Urine Ketones Negative (Negative) 07/03/24 23:50 Urine Blood 2+ (Negative) A 07/03/24 23:50 Urine Nitrate Negative (Negative) 07/03/24 23:50 Urine Bilirubin Negative (Negative) 07/03/24 23:50 Urine Urobilinogen 1.0 mg/dL (Negative) 07/03/24 23:50 Ur Leukocyte Esterase Negative (Negative) 07/03/24 23:50 Urine RBC 40-50 /hpf (0-2) H 07/03/24 23:50 Urine WBC None /hpf (0-5) 07/03/24 23:50 Ur Squamous Epith Cells None /hpf (0-5) 07/03/24 23:50 Amorphous Sediment Not Reportable 07/03/24 23:50 Urine Bacteria None /hpf (NONE) 07/03/24 23:50 All radiology interpretation(s) finalized by discharge Discharge Plan Discharge Patient Disposition: Home Clinical Impression: Paresthesia, Hypertension, Asymptomatic microscopic hematuria Condition: Stable Prescriptions: No Action omeprazole 20 mg capsule,delayed release(DR/EC) 20 mg PO DAILY amlodipine 10 mg tablet 10 mg PO DAILY simvastatin 10 mg tablet 10 mg PO DAILY levothyroxine 50 mcg capsule 50 mcg PO DAILY aspirin 81 mg tablet,delayed release (DR/EC) 81 mg PO DAILY Probiotic 3 billion cell capsule 3,000 mmu cells PO DAILY selenium 200 mcg capsule 200 mcg PO DAILY Rx Instructions: (out of med) psyllium husk [Metamucil] 0.4 gram capsule 0.4 gm PO DAILY fluticasone propionate 50 mcg/actuation spray,suspension 1 spray INTRANASAL DAILY valsartan 320 mg tablet 320 mg PO DAILY tamsulosin 0.4 mg capsule PO triamcinolone acetonide 0.1 % ointment 1 applic topical BID Qty: 80 1RF Rx Instructions: Use on legs, trunk no more than 2wks/mo hydrocodone-acetaminophen 5-325 mg tablet 1 tab PO Q6H PRN (Reason: pain) Qty: 25 0RF Discharge Orders: Discharge ED (Routine); Ordered 07/04/24 Ordered By: Faustino Anguiano Referrals: Abe Fairbanks MD [Primary Care Provider] - 1 week Patient Instructions: Hematuria - Male, Paresthesia (ED), Hypertension (ED) Activity Restrictions/Additional Instructions: Your evaluation in the ER that included physical exam, lab work, imaging, did not show any acute cause of your symptomatology. But did show you have a very small amount of blood in your urine. This may be benign but does need further investigating. Your blood pressure was also very high and required medicine to improve it. Please keep a blood pressure log and take it to your family practice doctor within the next 7 to 10 days for follow-up and further evaluation of these issues. Thank you for choosing [facility] for your healthcare needs today. Please realize that you were seen in the emergency department and that we are providing you with an emergency medical screening exam and this may not be a complete and all exclusive of all testing and/or medical workup we may need to determine your element or severity of your illness. It is very important that you follow-up as instructed with your primary care provider or specialist for the additional evaluation and to discuss your medical treatment plan. You may return to the emergency department should you have concerns or if your condition changes or worsens in any way. 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
[2024-07-03 23:34] LABS: Basophils # 0.1 10^3/uL (0.0-0.1); Basophils % 0.7 %; Eosinophils # 0.5 10^3/uL (0.0-0.8); Hematocrit 49.2 % (37-53); Lymphocytes # 2.5 10^3/uL (0.8-4.8); Lymphocytes % 33.7 %; Mean Corpuscular HGB Conc 33.7 g/dL (30-55); Mean Corpuscular Hemoglobin 30.9 pg (27-33); Mean Corpuscular Volume 91.6 fl (82-101); Mean Platelet Volume 11.3 fL (7.4-10.4); Monocytes # 0.8 10^3/uL (0.2-0.9); Monocytes % 10.6 %; Neutrophils # 3.58 10^3/uL (1.8-7.7); Neutrophils % 47.6 %; Nucleated Red Blood Cells % 0 %; Platelet Count 242 10^3/cmm (157-399); Red Blood Count 5.37 10^6/uL (3.85-5.65); White Blood Count 7.53 10^3/uL (3.29-11.43)
[2024-07-03 23:54] LABS: Alanine Aminotransferase 19 U/L (0-41); Albumin Level 4.4 g/dL (3.5-5.2); Alkaline Phosphatase 53 U/L (40-130); Aspartate Amino Transferase 18 U/L (0-40); Blood Urea Nitrogen 22 mg/dL (8-23); Calcium 9.9 mg/dL (8.5-10.5); Carbon Dioxide 25 mmol/L (22-29); Chloride 101 mmol/L (98-107); Glucose 126 mg/dL (65-115); Magnesium 2.3 mg/dL (1.7-2.3); Osmolality Calculated 291 mOsm/kg (285-295); Sodium 138 mmol/L (136-145); Total Bilirubin 0.3 mg/dL (0.15-1.2); Total Protein 7.4 g/dL (6.6-8.7)
[2024-07-03 23:55] VITALS: BP 145/95; PULSE 75; O2SAT 94
[2024-07-03 23:55] LABS: Anion Gap 16.3 (5-19); Potassium 4.3 mmol/L (3.5-5.1); Troponin(5th) Baseline 14 ng/L (0-15)
[2024-07-04 00:05] LABS: Thyroid Stimulating Hormone 3.25 uIU/mL (0.27-4.20)
[2024-07-04 00:22] LABS: Bilirubin Urine Negative (Negative); Blood Urine 2+ (Negative); Glucose Urine UA Negative (Normal); Ketones Urine Negative (Negative); Leukocyte Esterase Urine Negative (Negative); Nitrate Urine Negative (Negative); Protein Urine Negative (Negative); Specific Gravity, Urine 1.013 (1.005-1.030); Urine Appearance Clear (CLEAR); Urine Color Yellow (Yellow)
[2024-07-04 00:25] LABS: Add Urine Culture? Yes; Add Urine Microscopic? YES; RBC Urine 40-50 /hpf (0-2); UA Manual Slide Review YES; UA Slide Review UA Slide Review Perf
[2024-07-04 00:54] VITALS: BP 177/102
[2024-07-04] MEDS: cloNIDine 0.1 mg Tablet 0.2 MG PO (00:54)
[2024-07-04 00:55] VITALS: BP 136/89; PULSE 69; O2SAT 94
[2024-07-04] MEDS: tamsulosin 0.4 mg Capsule 0.8 MG PO (00:55)
[2024-07-04 01:00] LABS: Troponin 5 2HR 15.01 ng/L (0-15); Troponin 5 2HR Delta 1.01 ABS# (0-10)
[2024-07-04 01:55] VITALS: BP 125/83
[2024-07-04 02:25] VITALS: BP 115/76; O2SAT 96
[2024-07-04 02:30] VITALS: BP 125/83; PULSE 64; O2SAT 95
[2024-07-04 03:05] VITALS: BP 127/82; PULSE 78; O2SAT 92
== END 2024-07-04 03:06 | disposition home or self-care (01) ==
PROVIDERS: Emergency Provider Emergency Medicine; PCP Family Medicine
DX: R20.2 Paresthesia of skin (principal); I10 Essential (primary) hypertension; R31.21 Asymptomatic microscopic hematuria
CPT/HCPCS: 36415; 71045; 80053; 81001; 83735; 84443; 84484; 85025; 87086; 93005; 99285

== ENCOUNTER 2024-09-13 09:25 | Day surgery (SDC) | payer MEDICARE, OTHER, SELFPAY ==
[2024-09-13] VITALS (11 sets, daily range): BP systolic 109–161; BP diastolic 51–80; PULSE 52–86; RESP 16–18; TEMP 36.4–37.1; O2SAT 92–100; BMI 28.5
--- NOTE | 2024-09-13 09:36 | XR_ITS ---
WS: [id number] Exam: XR chest 1V portable [id number] Date/Time of Exam: 09/13/2024 9:39 AM Reason For Exam: Esophageal food impaction Comparison 07/03/2024. Lungs are clear and fully inflated. Heart size top limits normal. The mediastinum is normal in contour. There is rightward tracheal deviation. Bony structures are intact. No pleural effusion. IMPRESSION1. No acute cardiopulmonary finding. 2. Chronic rightward deviation of the trachea.
--- NOTE | 2024-09-13 09:36 | W.ED.GENADLT ---
HPI - General Adult General: Chief complaint: General Medical Stated complaint: food lodged in throat Time Seen by Provider: 09/13/24 09:33 History of Present Illness: 84-year-old male presents emergency room complaining of difficulty swallowing. He was eating breakfast morning was unable to swallow some of the cereal he been eating he has mild chest discomfort. He is unable to swallow saliva. He has had difficulty with this in the past but never had to have an EGD or esophageal dilation as well as been able to get it to pass on his own. No other recent illnesses chest pain or shortness of breath Associated symptoms: Deny chest pain, dyspnea or rash Related Data Home Medications ?Medication ?Instructions ?Recorded ?Confirmed amlodipine 10 mg tablet 10 mg PO DAILY 08/29/19 09/13/24 aspirin 81 mg tablet,delayed 81 mg PO DAILY 08/29/19 09/13/24 release simvastatin 10 mg tablet 10 mg PO DAILY 08/29/19 09/13/24 valsartan 320 mg tablet 320 mg PO DAILY 01/30/20 09/13/24 tamsulosin 0.4 mg capsule 0.4 - 0.8 mg PO DAILY 04/11/23 09/13/24 hydrochlorothiazide 12.5 mg tablet 25 mg PO DAILY 09/13/24 09/13/24 levothyroxine 75 mcg tablet 75 mcg PO DAILY 09/13/24 09/13/24 omeprazole 20 mg capsule,delayed 20 mg PO DAILY 09/13/24 09/13/24 release tizanidine 2 mg tablet 2 mg PO Q6H 09/13/24 09/13/24 Allergies Allergy/AdvReac Type Severity Reaction Status Date / Time iodine Allergy ALGY-Anaphy Verified 07/03/24 23:25 laxis latex Allergy ALGY-Rash Verified 07/03/24 23:25 Review of Systems Const: Denies: fever(s) or chills Card: Denies: chest pain Resp: Denies: dyspnea GI: Denies: abdominal pain : Denies: dysuria, urinary frequency or urinary urgency Musc: Denies: neck pain or back pain Skin/Breast: Denies: rash PFS ED PFSH: Medical History (Updated 09/13/24 @ 10:35 by Curly Ledbetter DO) GERD (gastroesophageal reflux disease) Hypertension Hypercholesterolemia Surgical History History of medial meniscus repair of right knee Status post Dupuytren's fasciectomy Family History Other Cancer Hyperlipidemia Hypertension Lung disease Stroke Denies family history of Diabetes CAD (coronary artery disease) Clotting disorder Dementia Psychiatric illness Chronic kidney disease (CKD) Suicide Anesthesia complication Bleeding disorder Family history of premature coronary artery disease Social History Smoking and tobacco/nicotine status: never used tobacco/nicotine Alcohol intake: current Alcohol intake frequency: holidays/special occasions only Substance/Drug Use: never Physical Exam Const: GENERAL APPEARANCE: cooperative ORIENTATION/CONSCIOUSNESS: Yes awake, Yes oriented to person, Yes oriented to place and Yes oriented to time HENMT: COMMON NORMALS: normocephalic, atraumatic and hearing grossly normal bilaterally HEAD & SCALP: normocephalic and atraumatic Resp: COMMON NORMALS: normal respiratory effort, No retractions, No use of accessory muscles and clear to auscultation bilaterally AUSCULTATION: clear to auscultation bilaterally Cardio: COMMON NORMALS: regular rate, regular rhythm and No murmurs present (Cardio) RATE: regular rate RHYTHM: regular rhythm GI: COMMON NORMALS: Soft to palpation and No hepatosplenomegaly present AUSCULTATION: Yes normoactive bowel sounds PALPATION: Yes Soft to palpation, No Tenderness to palpation present (GI), No Guarding due to palpation present (GI) and Yes No hepatosplenomegaly present Extremity: COMMON NORMALS: normal to inspection, capillary refill normal, no clubbing, cyanosis or edema, no calf tenderness and no pedal edema Neuro: SENSORIUM/ORIENTATION: Yes oriented to person, Yes oriented to place and Yes oriented to time Skin: COMMON NORMALS: no rashes or lesions noted GENERAL SKIN EXAM: no rashes or lesions noted Course Vital Signs: Vital signs: Vital Signs Temperature 98.2 F 09/13/24 09:29 Pulse Rate 86 09/13/24 09:29 Respiratory Rate 18 09/13/24 09:29 Blood Pressure 150/69 09/13/24 09:29 Pulse Oximetry 96 09/13/24 09:29 Oxygen Delivery Me thod Room Air 09/13/24 09:29 MDM - General Adult Medical Decision Making Exam unremarkable patient. Patient unable to swallow saliva. Placed on knobs with surgery for esophageal food impaction. Chest x-ray was unremarkable labs unremarkable EKG did not show any acute abnormality. Discussed Dr. Melgar that she will see the patient in the GI suite for EGD to relieve the impaction Medical Records I reviewed the patient's medical records. Lab Data I reviewed the patient's lab results. 09/13/24 09:34 09/13/24 09:34 Laboratory Results WBC 5.59 10^3/uL (3.29-11.43) 09/13/24 09:34 RBC 5.06 10^6/uL (3.85-5.65) 09/13/24 09:34 Hgb 15.60 g/dL (11.27-16.99) 09/13/24 09:34 Hct 45.9 % (37-53) 09/13/24 09:34 MCV 90.7 fl (82-101) 09/13/24 09:34 MCH 30.8 pg (27-33) 09/13/24 09:34 MCHC 34.0 g/dL (30-55) 09/13/24 09:34 RDW 13.0 % (12.1-15.1) 09/13/24 09:34 Plt Count 216 10^3/cmm (157-399) 09/13/24 09:34 MPV 11.2 fL (7.4-10.4) H 09/13/24 09:34 Neut % (Auto) 55.7 % 09/13/24 09:34 Lymph % (Auto) 31.7 % 09/13/24 09:34 [place] % (Auto) 7.2 % 09/13/24 09:34 Eos % (Auto) 4.1 % 09/13/24 09:34 Baso % (Auto) 0.9 % 09/13/24 09:34 Neut # (Auto) 3.12 10^3/uL (1.8-7.7) 09/13/24 09:34 Lymph # (Auto) 1.8 10^3/uL (0.8-4.8) 09/13/24 09:34 [place] # (Auto) 0.4 10^3/uL (0.2-0.9) 09/13/24 09:34 Eos # (Auto) 0.2 10^3/uL (0.0-0.8) 09/13/24 09:34 Baso # (Auto) 0.1 10^3/uL (0.0-0.1) 09/13/24 09:34 Nucleated RBC % (auto) 0 % 09/13/24 09:34 Nucleated RBCs # 0.0 /100WBC 09/13/24 09:34 Sodium 136 mmol/L (136-145) 09/13/24 09:34 Potassium 4.0 mmol/L (3.5-5.1) 09/13/24 09:34 Chloride 99 mmol/L (98-107) 09/13/24 09:34 Carbon Dioxide 23 mmol/L (22-29) 09/13/24 09:34 Anion Gap 18.0 (5-19) 09/13/24 09:34 BUN 17 mg/dL (8-23) 09/13/24 09:34 Creatinine 1.4 mg/dL (0.7-1.2) H 09/13/24 09:34 GFR Calculation Not Reportable 09/13/24 09:34 Glucose 152 mg/dL (65-115) H 09/13/24 09:34 Calculated Osmolality 287 mOsm/kg (285-295) 09/13/24 09:34 Calcium 9.3 mg/dL (8.5-10.5) 09/13/24 09:34 Total Bilirubin 0.7 mg/dL (0.15-1.2) 09/13/24 09:34 AST 20 U/L (0-40) 09/13/24 09:34 ALT 19 U/L (0-41) 09/13/24 09:34 Alkaline Phosphatase 40 U/L (40-130) 09/13/24 09:34 Total Protein 7.1 g/dL (6.6-8.7) 09/13/24 09:34 Albumin 3.9 g/dL (3.5-5.2) 09/13/24 09:34 Globulin 3.2 g/dL (1.3-4.6) 09/13/24 09:34 All radiology interpretation(s) finalized by discharge Discharge Plan Discharge Patient Disposition: Placed in Observation Clinical Impression: Esophageal obstruction due to food impaction Coding Level of Care 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
[2024-09-13 09:43] LABS: Basophils # 0.1 10^3/uL (0.0-0.1); Basophils % 0.9 %; Eosinophils # 0.2 10^3/uL (0.0-0.8); Eosinophils % 4.1 %; Hematocrit 45.9 % (37-53); Lymphocytes # 1.8 10^3/uL (0.8-4.8); Lymphocytes % 31.7 %; Mean Corpuscular Hemoglobin 30.8 pg (27-33); Mean Corpuscular Volume 90.7 fl (82-101); Mean Platelet Volume 11.2 fL (7.4-10.4); Monocytes # 0.4 10^3/uL (0.2-0.9); Monocytes % 7.2 %; Neutrophils # 3.12 10^3/uL (1.8-7.7); Neutrophils % 55.7 %; Nucleated Red Blood Cells % 0 %; Platelet Count 216 10^3/cmm (157-399); Red Blood Count 5.06 10^6/uL (3.85-5.65); White Blood Count 5.59 10^3/uL (3.29-11.43)
--- NOTE | 2024-09-13 09:49 | ECG_ITS ---
[facility] 2024[facility]13 Pat Name: Dick Wiseman Department: Room: Gender: Male Sole Dyer: : 1940 Requested By: Curly Alexander Order Number: [id number] Reading MD: RAJINDER HANKINS Measurements Intervals [place] Rate: 66 P: 62 FL: 164 QRS: 48 QRSD: 97 T: 43 QT: 386 QTc: 405 Interpretive Statements SINUS RHYTHM Compared to ECG 07/03/2024 23:19:08 Ventricular premature complex(es) no longer present Electronically Signed On 09-13-2024 23:29:02 CDT by RAJINDER HANKINS [email or web address] [id number]
[2024-09-13 10:19] LABS: Alanine Aminotransferase 19 U/L (0-41); Albumin Level 3.9 g/dL (3.5-5.2); Alkaline Phosphatase 40 U/L (40-130); Aspartate Amino Transferase 20 U/L (0-40); Blood Urea Nitrogen 17 mg/dL (8-23); Calcium 9.3 mg/dL (8.5-10.5); Carbon Dioxide 23 mmol/L (22-29); Chloride 99 mmol/L (98-107); Creatinine Clr Calc Pharmacy 46.5808; Globulin 3.2 g/dL (1.3-4.6); Glucose 152 mg/dL (65-115); Osmolality Calculated 287 mOsm/kg (285-295); Sodium 136 mmol/L (136-145); Total Bilirubin 0.7 mg/dL (0.15-1.2); Total Protein 7.1 g/dL (6.6-8.7)
--- NOTE | 2024-09-13 10:44 | ANES.PREANE2 ---
Pre-Anesthetic Assessment Height/Weight: Height 1.8 m Weight 92.986 kg Temp Pulse Resp BP Pulse Ox O2 Del Method 98.2 F 86 18 150/69 96 Room Air 09/13/24 09:09/13/24 09:09/13/24 09:09/13/24 09:09/13/24 09:09/13/24 09:29 Familial anesthetic complications: None Was Beta Cris taken within 24 hours: N/A Was Clonidine taken within 24 hours: N/A Last intake: Breakfast 0800 Social No alcohol and No tobacco Exam alert, oriented x 3, clear to auscultation bilaterally and regular rate & rhythm Airway Submandibular: within normal limits Cervical ROM: within normal limits Mallampati: Class III Dentition: full History/ROS No significant history except as noted and No significant complaints Pulmonary Exertional Dyspnea CV/HEM Hypertension None reported BPH GI Gastroesophageal Reflux Disease Food bolus Metabolic Hyperlipidemia and Thyroid Disease Musc/skel Osteoarthritis/DJD Neuropsych Headache and Neuropathy Anesthetic Plan ASA status: 2E Anesthesia: Anesthesia Evaluation and General Risk of > 500 ml blood loss (7ml/kg in children): No Medications/Allergies Home Medications ?Medication ?Instructions ?Recorded ?Confirmed ?Last Taken ?Type amlodipine 10 mg tablet 10 mg PO DAILY 08/29/19 09/13/24 09/13/24 History aspirin 81 mg tablet,delayed 81 mg PO DAILY 08/29/19 09/13/24 09/13/24 History release simvastatin 10 mg tablet 10 mg PO DAILY 08/29/19 09/13/24 09/13/24 History valsartan 320 mg tablet 320 mg PO DAILY 01/30/20 09/13/24 09/13/24 History tamsulosin 0.4 mg capsule 0.4 - 0.8 mg PO DAILY 04/11/23 09/13/24 09/12/24 History hydrochlorothiazide 12.5 mg tablet 25 mg PO DAILY 09/13/24 09/13/24 09/13/24 History levothyroxine 75 mcg tablet 75 mcg PO DAILY 09/13/24 09/13/24 09/13/24 History omeprazole 20 mg capsule,delayed 20 mg PO DAILY 09/13/24 09/13/24 09/13/24 History release tizanidine 2 mg tablet 2 mg PO Q6H 09/13/24 09/13/2409/12/25 History Allergies Allergy/AdvReac Type Severity Reaction Status Date / Time iodine Allergy ALGY-Anaphy Verified 07/03/24 23:25 laxis latex Allergy ALGY-Rash Verified 07/03/24 23:25 [facility] Anesthesia Medical History (Updated 09/13/24 @ 10:35 by Curly Ledbetter DO) GERD (gastroesophageal reflux disease) Hypertension Hypercholesterolemia Surgical History History of medial meniscus repair of right knee Status post Dupuytren's fasciectomy Family History Other Cancer Hyperlipidemia Hypertension Lung disease Stroke Denies family history of Diabetes CAD (coronary artery disease) Clotting disorder Dementia Psychiatric illness Chronic kidney disease (CKD) Suicide Anesthesia complication Bleeding disorder Family history of premature coronary artery disease Social History Smoking and tobacco/nicotine status: never used tobacco/nicotine Alcohol intake: current Alcohol intake frequency: holidays/special occasions only Substance/Drug Use: never Data Anesthesia 09/13/24 09:34 09/13/24 09:34 Short CBC 09/13/24 Range/Units 09:34 WBC 5.59 (3.29-11.43) 10^3/uL Hgb 15.60 (11.27-16.99) g/dL Hct 45.9 (37-53) % MCV 90.7 (82-101) fl Plt Count 216 (157-399) 10^3/cmm Neut % (Auto) 55.7 % Neut # (Auto) 3.12 (1.8-7.7) 10^3/uL BMP 09/13/24 09:34 Sodium 136 Potassium 4.0 Chloride 99 Carbon Dioxide 23 BUN 17 Creatinine 1.4 H Glucose 152 H Calcium 9.3 Liver Function 09/13/24 Range/Units 09:34 Total Bilirubin 0.7 (0.15-1.2) mg/dL AST 20 (0-40) U/L ALT 19 (0-41) U/L Alkaline Phosphatase 40 (40-130) U/L Albumin 3.9 (3.5-5.2) g/dL
--- NOTE | 2024-09-13 11:03 | PM.CONSULT ---
Providers/Reason For Consult Consulting Physician/Specialty*: Lydia Melgar DO Reason for Consult*: Food Bolus Impaction Requesting Physician: Curly Ledbetter Attending Physician: Lydia Melgar MD Primary Care Provider: Abe Fairbanks MD History of Present Illness History of Present Illness Dick Wiseman is a 84 year old male with a longstanding history of GERD and Oates's metaplasia. He presents with food bolus impaction. His last upper scope was between 5 and [address] Silverman. He was told that his Oates's was okay or improved. He has taken pantoprazole for over 10 years. He ate shredded wheat this morning and has felt like something has been stuck ever since. He has been spitting up water, saliva, and possibly milk. He has tried swallowing water but it doesn't go down. Yesterday he ate tuna and prunes. He does not have any know history of esophageal stricture. He did say he had an upper scope many years ago for some type of bleeding. He does not take any blood thinners. Review of Systems General: Reports: 10 or more systems reviewed and unremarkable except in HPI and below GI: Reports: nausea, dysphagia and heartburn; Denies: abdominal pain Medications/Allergies Home Medications ?Medication ?Instructions ?Recorded ?Confirmed ?Last Taken ?Type amlodipine 10 mg tablet 10 mg PO DAILY 08/29/19 09/13/24 09/13/24 History aspirin 81 mg tablet,delayed 81 mg PO DAILY 08/29/19 09/13/24 09/13/24 History release simvastatin 10 mg tablet 10 mg PO DAILY 08/29/19 09/13/24 09/13/24 History valsartan 320 mg tablet 320 mg PO DAILY 01/30/20 09/13/24 09/13/24 History tamsulosin 0.4 mg capsule 0.4 - 0.8 mg PO DAILY 04/11/23 09/13/24 09/12/24 History hydrochlorothiazide 12.5 mg tablet 25 mg PO DAILY 09/13/24 09/13/24 09/13/24 History levothyroxine 75 mcg tablet 75 mcg PO DAILY 09/13/24 09/13/24 09/13/24 History omeprazole 20 mg capsule,delayed 20 mg PO DAILY 09/13/24 09/13/24 09/13/24 History release tizanidine 2 mg tablet 2 mg PO Q6H 09/13/24 09/13/24 09/12/24 History Allergies Allergy/AdvReac Type Severity Reaction Status Date / Time iodine Allergy ALGY-Anaphy Verified 07/03/24 23:25 laxis latex Allergy ALGY-Rash Verified 07/03/24 23:25 PFSH Acute PFSH: Medical History (Updated 09/13/24 @ 11:16 by Lydia Melgar MD) History of Oates's esophagus GERD (gastroesophageal reflux disease) Hypertension Hypercholesterolemia Surgical History History of medial meniscus repair of right knee Status post Dupuytren's fasciectomy Family History Other Cancer Hyperlipidemia Hypertension Lung disease Stroke Denies family history of Diabetes CAD (coronary artery disease) Clotting disorder Dementia Psychiatric illness Chronic kidney disease (CKD) Suicide Anesthesia complication Bleeding disorder Family history of premature coronary artery disease Social History Smoking and tobacco/nicotine status: never used tobacco/nicotine Alcohol intake: current Alcohol intake frequency: holidays/special occasions only Substance/Drug Use: never Vitals/I&O/Wt Last Vital Signs Temp 98.2 F 09/13/24 09:29 Pulse 86 09/13/24 09:29 Resp 18 09/13/24 09:29 BP 150/69 09/13/24 09:29 Pulse Ox 96 09/13/24 09:29 O2 Del Method Room Air 09/13/24 09:29 Weight last 48 hrs Weight 205 lb Physical Exam Const: COMMON NORMALS: no acute distress, average body habitus and patient oriented x3 HENMT: COMMON NORMALS: normocephalic and atraumatic HEAD & SCALP: normocephalic and atraumatic Chest: COMMONS NORMALS: normal inspection of the chest Resp: COMMON NORMALS: normal respiratory effort and No use of accessory muscles GI: COMMON NORMALS: Normal to inspection, nondistended, normoactive bowel sounds present and Soft to palpation PALPATION: Yes Soft to palpation Neuro: COMMON NORMALS: patient oriented x3 Psych: COMMON NORMALS: mental status grossly normal Data 09/13/24 09:34 09/13/24 09:34 A&P Assessment and plan (1) Esophageal obstruction due to food impaction: Plan for EGD with possible food bolus removal. Prior to procedure the risks, benefits and alternatives were discussed with the patient and family in detail. Riska included, but were not limited to infection, bleeding, perforation, need for further major surgery, possible hospitalization, and heart or lung complications. Risk of perforation is higher with food bolus impaction. All questions answered and patient wished to proceed. (2) GERD (gastroesophageal reflux disease): PDMP PDMP Reviewed: Not Reviewed Coding Level of Care Code Acute Code for Chg Fwd Diagnoses Esophageal obstruction due to food impaction T18.128A; W44.F3XA GERD (gastroesophageal reflux disease) K21.9
--- NOTE | 2024-09-13 11:59 | PC.NURSE ---
Took over patients care from VALENTE Ventura at [id number]
--- NOTE | 2024-09-13 14:21 | PM.DCS ---
Discharge Providers Date of Admission: 09/13/2024 Date of Discharge: September 13, 2024 Attending Provider at Admission: Curly Joe Attending Provider at Discharge: Lydia Melgar MD Consults: None. Primary Care Provider: Abe Fairbanks MD Diagnoses at Discharge Discharge Diagnosis (1) Esophageal obstruction due to food impaction: Details from hospital stay: EGD demonstrated: Esophageal food bolus impaction Reflux distal esophagitis, LA grade A - rule out Oates's metaplasia, biopsies taken Heme staining in the gastric body Retained solid and liquid in the gastric body Gastritis - rule out H. pylori infection, biopsies taken Small 3 mm intramural hematoma in the mid esophagus Inflammation/erythema in the mid and distal esophagus Subtle narrowing at the GE junction, but no distinct esophageal stricture noted - consider a possible esophageal dysmotility disorder Follow-up in clinic with Dr. Cooper in 2 weeks to review pathology and further work-up Status: Acute (2) GERD (gastroesophageal reflux disease): Status: Acute (3) Gastritis determined by endoscopy: Status: Acute (4) Esophagitis determined by endoscopy: Status: Acute (5) Retained food in stomach: Status: Acute (6) History of Oatse's esophagus: Status: Acute Reason for Visit Reason for Visit: food lodged in throat Physical Exam Const: COMMON NORMALS: no acute distress and patient oriented x3 HENMT: COMMON NORMALS: normocephalic and atraumatic HEAD & SCALP: normocephalic and atraumatic Chest: COMMONS NORMALS: normal inspection of the chest Resp: COMMON NORMALS: normal respiratory effort and No use of accessory muscles GI: COMMON NORMALS: Normal to inspection, nondistended, normoactive bowel sounds present Neuro: COMMON NORMALS: patient oriented x3 Discharge Data Studies Completed and Pending Completed Studies During Hospitalization Category Date Time Status XR chest 1V portable [id number] Stat Exams 09/13/24 09:36 Completed Pending at discharge Category Date Time Status Pathology: Surgical [PTH] Routine Pth 09/13/24 11:45 Received Laboratory Results WBC 5.59 10^3/uL (3.29-11.43) 09/13/24 09:34 RBC 5.06 10^6/uL (3.85-5.65) 09/13/24 09:34 Hgb 15.60 g/dL (11.27-16.99) 09/13/24 09:34 Hct 45.9 % (37-53) 09/13/24 09:34 MCV 90.7 fl (82-101) 09/13/24 09:34 MCH 30.8 pg (27-33) 09/13/24 09:34 MCHC 34.0 g/dL (30-55) 09/13/24 09:34 RDW 13.0 % (12.1-15.1) 09/13/24 09:34 Plt Count 216 10^3/cmm (157-399) 09/13/24 09:34 MPV 11.2 fL (7.4-10.4) H 09/13/24 09:34 Neut % (Auto) 55.7 % 09/13/24 09:34 Lymph % (Auto) 31.7 % 09/13/24 09:34 [place] % (Auto) 7.2 % 09/13/24 09:34 Eos % (Auto) 4.1 % 09/13/24 09:34 Baso % (Auto) 0.9 % 09/13/24 09:34 Neut # (Auto) 3.12 10^3/uL (1.8-7.7) 09/13/24 09:34 Lymph # (Auto) 1.8 10^3/uL (0.8-4.8) 09/13/24 09:34 [place] # (Auto) 0.4 10^3/uL (0.2-0.9) 09/13/24 09:34 Eos # (Auto) 0.2 10^3/uL (0.0-0.8) 09/13/24 09:34 Baso # (Auto) 0.1 10^3/uL (0.0-0.1) 09/13/24 09:34 Nucleated RBC % (auto) 0 % 09/13/24 09:34 Nucleated RBCs # 0.0 /100WBC 09/13/24 09:34 Sodium 136 mmol/L (136-145) 09/13/24 09:34 Potassium 4.0 mmol/L (3.5-5.1) 09/13/24 09:34 Chloride 99 mmol/L (98-107) 09/13/24 09:34 Carbon Dioxide 23 mmol/L (22-29) 09/13/24 09:34 Anion Gap 18.0 (5-19) 09/13/24 09:34 BUN 17 mg/dL (8-23) 09/13/24 09:34 Creatinine 1.4 mg/dL (0.7-1.2) H 09/13/24 09:34 GFR Calculation Not Reportable 09/13/24 09:34 Glucose 152 mg/dL (65-115) H 09/13/24 09:34 Calculated Osmolality 287 mOsm/kg (285-295) 09/13/24 09:34 Calcium 9.3 mg/dL (8.5-10.5) 09/13/24 09:34 Total Bilirubin 0.7 mg/dL (0.15-1.2) 09/13/24 09:34 AST 20 U/L (0-40) 09/13/24 09:34 ALT 19 U/L (0-41) 09/13/24 09:34 Alkaline Phosphatase 40 U/L (40-130) 09/13/24 09:34 Total Protein 7.1 g/dL (6.6-8.7) 09/13/24 09:34 Albumin 3.9 g/dL (3.5-5.2) 09/13/24 09:34 Globulin 3.2 g/dL (1.3-4.6) 09/13/24 09:34 Procedures Performed EGD with biopsy and removal of food bolus impaction Vitals Last Vital Signs Temp 97.5 F L 09/13/24 12:23 Pulse 53 L 09/13/24 12:32 Resp 17 09/13/24 12:32 BP 118/53 09/13/24 12:32 Pulse Ox 98 09/13/24 12:32 O2 Del Method Room Air 09/13/24 12:32 Discharge Plan Discharge Patient Disposition: Home Condition: Stable Prescriptions: New sucralfate [Carafate] 100 mg/mL suspension 1 g PO BID 28 Days Qty: 560 0RF Continued amlodipine 10 mg tablet 10 mg PO DAILY simvastatin 10 mg tablet 10 mg PO DAILY valsartan 320 mg tablet 320 mg PO DAILY tamsulosin 0.4 mg capsule 0.4 - 0.8 mg PO DAILY tizanidine 2 mg tablet 2 mg PO Q6H levothyroxine 75 mcg tablet 75 mcg PO DAILY omeprazole 20 mg capsule,delayed release(DR/EC) 20 mg PO DAILY hydrochlorothiazide 12.5 mg tablet 25 mg PO DAILY Held aspirin 81 mg tablet,delayed release (DR/EC) 81 mg PO DAILY Hold Instructions: 48 hours - may continue as long as no vomiting blod or rectal bleeding. Discharge Orders: Discharge Order (Routine); Ordered 09/13/24 Ordered By: Lydia Melgar Referrals: Brando Cooper MD [Physician, General Surgery] Referral Note: Food bolus, esophagitis, gastritis, retained gastric contents - esophagus and antral biopsies. Abe Fairbanks MD [Primary Care Provider, [facility]] Discharge Diet: Clear Liquid Discharge Activity: Resume usual activity Patient Instructions: GI Post Discharge Instructions w/ Anesthesia Activity Restrictions/Additional Instructions: -- Clear liquid diet over the weekend, then advance to a soft diet as tolerated. -- Continue Pantoprazole, start Carafate. Return to ED if vomiting blood, chest pain, abdominal pain/bloating, intractable nausea/vomiting. -- I do not recommend traveling this weekend (previously planned 7 flight tomorrow). -- Subtle narrowing at the GE junction, but no distinct esophageal stricture noted - consider a possible esophageal dysmotility disorder. Follow-up in clinic with Dr. Cooper in 2 weeks to review pathology and further work-up. Print Language: Macedonian Discharge Attestations Time Spent in Discharge Care*: greater than 30 min Quality Metrics Clinical Quality Measures [ No reported AMI, CVA or VTE this stay] Coding Level of Care Code Acute Code for Chg Fwd Diagnoses Esophageal obstruction due to food impaction T18.128A; W44.F3XA GERD (gastroesophageal reflux disease) K21.9 Gastritis determined by endoscopy K29.70 Esophagitis determined by endoscopy K20.90 Retained food in stomach K31.89 History of Oates's esophagus Z87.19
== END 2024-09-13 12:43 | disposition home or self-care (01) ==
LOC: ER 10:35 → GILAB 11:02
PROVIDERS: Emergency Provider Family Medicine; PCP Family Medicine; Visit Provider Surgery
PROC: 0DJ08ZZ Inspection of Upper Intestinal Tract, Via Natural or Artificial Opening Endoscopic (ICD-10-PCS; principal; 2024-09-13 11:00)
DX: T18.128A Food in esophagus causing other injury, initial encounter (principal); K29.01 Acute gastritis with bleeding; I10 Essential (primary) hypertension; K21.00 Gastro-esophageal reflux disease with esophagitis, without bleeding; Z79.82 Long term (current) use of aspirin; Z79.890 Hormone replacement therapy; Z79.899 Other long term (current) drug therapy; Z91.041 Radiographic dye allergy status; Z91.040 Latex allergy status; W44.F3XA Food entering into or through a natural orifice, initial encounter; Z87.19 Personal history of other diseases of the digestive system
CPT/HCPCS: 12345; 43239; 43247; 71045; 80053; 85025; 88305; 93005; 99285; J0330; J1100; J2405; J2704

== ENCOUNTER → 2024-09-26 09:57 | Outpatient (BNVA) | payer MEDICARE, OTHER, SELFPAY | PROVIDERS: PCP Family Medicine; Visit Provider Surgery | DX: Z09 Encounter for follow-up examination after completed treatment for conditions other than malignant neoplasm (principal) | CPT/HCPCS: 99213 ==